=== PATIENT | male | born 1970 | race Caucasian/White ===

== ENCOUNTER 2018-01-31 16:20 | Emergency (ER) | payer MEDICARE, MEDICAID ==
[~2018-01-31] VITALS: Ht 182.9 cm; Wt 95.7 kg
[~2018-01-31 16:20] MED LIST: AMLO10TA6 PO; AMOX1TAB61 PO; DIAZEPAM10 MG PO; DOCU-109 PO; ESOM40CA PO; GEMF600T4 PO; OMEG1CAP27 PO; OXYC-328 PO; OXYC30TA PO; ROPI1TAB PO; TADA5TAB PO; cholesterol med
--- NOTE | 2018-01-31 16:30 | PHYS DOC ---
Past Medical History Past Medical History: GERD, High Cholesterol, Hypertension, Other Additional Past Medical Histor: CP of lower extremities, vertigo Past Surgical History: No Surgical History Alcohol Use: None Drug Use: None Adult General HPI HPI Patient is a 47 year old male presented to the ER by EMS with epigastric chest pain just started about 1 hour ago. The pain went up into his esophagus. Patient denied any fever, no nausea or vomiting. Patient had his gallbladder removed recently ON 01/07/18. He had no history of blood clot disorder, no history of coronary artery disease, no history of diabetic. Patient has history of hypertension. Review of Systems Review of Systems Constitutional: Denies fever or chills [] Eyes: Denies change in visual acuity, redness, or eye pain [] HENT: Denies nasal congestion or sore throat [] Respiratory: Denies cough or shortness of breath [] Cardiovascular: POSITIVE FOR CHEST PAIN GI: POSITIVE FOR abdominal pain, NO nausea, vomiting, bloody stools or diarrhea [] : Denies dysuria or hematuria [] Musculoskeletal: Denies back pain or joint pain [] Integument: Denies rash or skin lesions [] Neurologic: Denies headache, focal weakness or sensory changes [] Endocrine: Denies polyuria or polydipsia [] All other systems were reviewed and found to be within normal limits, except as documented in this note. Current Medications Current Medications Current Medications Medications (Trade) Dose Ordered Sig/Anna Start Time Stop Time Status Last Admin Dose Admin Fentanyl Citrate (Fentanyl 2ml Vial) 50 mcg 1X ONCE 01/31/18 18:45 01/31/18 18:46 DC 01/31/18 18:53 50 MCG Info (CONTRAST GIVEN -- Rx MONITORING) 1 each PRN DAILY PRN 01/31/18 17:45 02/02/18 17:44 Iohexol (Omnipaque 300 Mg/ml) 75 ml 1X ONCE 01/31/18 17:30 01/31/18 17:32 DC 01/31/18 17:30 75 ML Morphine Sulfate (Morphine Sulfate) 4 mg 1X ONCE 01/31/18 17:00 01/31/18 17:01 DC 01/31/18 17:06 4 MG Multi-Ingredient Mouthwash/Gargle (Gi Cocktail) 20 ml 1X ONCE 01/31/18 20:45 01/31/18 20:46 DC 01/31/18 20:50 20 ML Sodium Chloride 1,000 ml @ 1,000 mls/hr 1X ONCE 01/31/18 17:00 01/31/18 17:59 DC 01/31/18 17:05 1,000 MLS/HR Allergies Allergies Allergies Coded Allergies Type Severity Reaction Last Updated Verified Penicillins Allergy Intermediate Hives 01/09/18 Yes Physical Exam Physical Exam Constitutional: Well developed, well nourished, no acute distress, non-toxic appearance. [] HENT: Normocephalic, atraumatic, bilateral external ears normal, oropharynx moist, no oral exudates, nose normal. [] Eyes: PERRLA, EOMI, conjunctiva normal, no discharge. [] Neck: Normal range of motion, no tenderness, supple, no stridor. [] Cardiovascular:Heart rate regular rhythm, no murmur [] Lungs & Thorax: Bilateral breath sounds clear to auscultation [] Abdomen: Bowel sounds normal, soft, Epigastric area tender to palpation,no rebound, no guarding, no masses, no pulsatile masses. [] Skin: Warm, dry, no erythema, no rash. [] Back: No tenderness, no CVA tenderness. [] Extremities: No tenderness, no cyanosis, no clubbing, ROM intact, no edema. [] Neurologic: Alert and oriented X 3, normal motor function, normal sensory function, no focal deficits noted. [] Psychologic: Affect normal, judgement normal, mood normal. [] Current Patient Data Vital Signs Vital Signs Date Time Temp Pulse Resp B/P (MAP) Pulse Ox O2 Delivery O2 Flow Rate FiO2 01/31/18 20:55 97.8 148/88 (108) 99 Room Air 97.8 01/31/18 18:53 16 01/31/18 16:40 79 Lab Values Laboratory Tests Test 01/31/18 16:53 01/31/18 19:43 White Blood Count 9.8 x10^3/uL (4.0-11.0) Red Blood Count 5.04 x10^6/uL (4.30-5.70) Hemoglobin 15.6 g/dL (13.0-17.5) Hematocrit 44.9 % (39.0-53.0) Mean Corpuscular Volume 89 fL (79-100) Mean Corpuscular Hemoglobin 31 pg (25-35) Mean Corpuscular Hemoglobin Concent 35 g/dL (31-37) Red Cell Distribution Width 12.6 % (11.5-14.5) Platelet Count 337 x10^3/uL (140-400) Neutrophils (%) (Auto) 61 % (31-73) Lymphocytes (%) (Auto) 27 % (24-48) Monocytes (%) (Auto) 9 % (0-9) Eosinophils (%) (Auto) 2 % (0-3) Basophils (%) (Auto) 1 % (0-3) Neutrophils # (Auto) 6.0 x10^3uL (1.8-7.7) Lymphocytes # (Auto) 2.7 x10^3/uL (1.0-4.8) Monocytes # (Auto) 0.9 x10^3/uL (0.0-1.1) Eosinophils # (Auto) 0.1 x10^3/uL (0.0-0.7) Basophils # (Auto) 0.1 x10^3/uL (0.0-0.2) Prothrombin Time 12.5 SEC (11.7-14.0) Prothrombin Time INR 1.0 (0.8-1.1) D-Dimer (Sahra) 0.41 ug/mlFEU (0.00-0.50) Sodium Level 138 mmol/L (136-145) Potassium Level 3.8 mmol/L (3.5-5.1) Chloride Level 99 mmol/L (98-107) Carbon Dioxide Level 28 mmol/L (21-32) Anion Gap 11 (6-14) Blood Urea Nitrogen 10 mg/dL (8-26) Creatinine 0.8 mg/dL (0.7-1.3) Estimated GFR (Cockcroft-Gault) 104.1 BUN/Creatinine Ratio 13 (6-20) Glucose Level 103 mg/dL (70-99) H Calcium Level 9.4 mg/dL (8.5-10.1) Magnesium Level 1.9 mg/dL (1.8-2.4) Total Bilirubin 0.5 mg/dL (0.2-1.0) Aspartate Amino Transferase (AST) 45 U/L (15-37) H Alanine Aminotransferase (ALT) 32 U/L (16-63) Alkaline Phosphatase 95 U/L (46-116) Creatine Kinase 195 U/L (39-308) Troponin I Quantitative < 0.017 ng/mL (0.000-0.055) TJ-Jgz-V-Type Natriuretic Peptide 35 pg/mL (0-124) Total Protein 7.8 g/dL (6.4-8.2) Albumin 4.1 g/dL (3.4-5.0) Albumin/Globulin Ratio 1.1 (1.0-1.7) Lipase 96 U/L (73-393) Urine Collection Type Unknown Urine Color Yellow Urine Clarity Clear Urine pH 6.5 Urine Specific [place] 1.010 Urine Protein Negative mg/dL (NEG-TRACE) Urine Glucose (UA) Negative mg/dL (NEG) Urine Ketones (Stick) Negative mg/dL (NEG) Urine Blood Negative (NEG) Urine Nitrite Negative (NEG) Urine Bilirubin Negative (NEG) Urine Urobilinogen Dipstick 0.2 mg/dL (0.2 mg/dL) Urine Leukocyte Esterase Negative (NEG) Urine RBC 0 /HPF (0-2) Urine WBC 0 /HPF (0-4) Urine Squamous Epithelial Cells None /LPF Urine Bacteria 0 /HPF (0-FEW) Urine Mucus Slight /LPF Laboratory Tests 01/31/18 16:53 Laboratory Tests 01/31/18 16:53 EKG EKG ekg read at 4:35 pm, rate of 75 bpm, no STEMI, SINUS RHYTHM.[] Radiology/Procedures Radiology/Procedures [] Course & Med Decision Making Course & Med Decision Making Pertinent Labs and Imaging studies reviewed. (See chart for details) AWAITING FOR CT SCAN OF ABDOMEN , PELVIC, CTA CHEST. IF ALL NEGATIVE, ANTICIPATE DISCHARGE HOME, CARE WAS TURNED OVER TO DR. CHUCK DUNHAM AT SHIFT CHANGE. Dragon Disclaimer Dragon Disclaimer This electronic medical record was generated, in whole or in part, using a voice recognition dictation system. Departure Departure Impression: Primary Impression: Abdominal pain Disposition: 01 HOME, SELF-CARE Condition: STABLE Referrals: MELVA NAGY (PCP) CHRISSIE PACHECO MD Patient Instructions: Abdominal Pain (Nonspecific) Scripts Hyoscyamine Sulfate (LEVSIN-SL) 0.125 Mg Tab.subl 1-2 TAB SL PRN Q4HRS PRN for PAIN, #20 TAB 0 Refills Prov: LORETTA DUNHAM DO 01/31/18 Sucralfate (CARAFATE) 1 Gm/10 Ml Oral.susp 10 ML PO QID, #1200 ML Prov: LORETTA DUNHAM DO 01/31/18 Attending Signature Attending Signature I have reviewed the PA/DIE TURNER's note and plan of care. I was available for consultation as needed during the patient's visit in the emergency department. I agree with the clinical impression, plan, and disposition. Problem Qualifiers Primary Impression: Abdominal pain Abdominal location: epigastric Qualified Codes: R10.13 - Epigastric pain WELLINGTON LAW DO Jan 31, 2018 16:30 LORETTA DUNHAM DO Jan 31, 2018 20:36
[2018-01-31] MEDS ORDERED: IV NORMAL SALINE 1000ML BAG 1,000 ML IV ONE (17:00)
[2018-01-31] MEDS ORDERED: MORPHINE SULFATE 4 MG/ML VIAL. IV ONE (17:00)
[2018-01-31 17:01] LABS: BASO # 0.1 x10^3/uL (0.0-0.2); BASO % 1 % (0-3); EOS # 0.1 x10^3/uL (0.0-0.7); EOS % 2 % (0-3); HEMATOCRIT 44.9 % (39.0-53.0); HEMOGLOBIN 15.6 g/dL (13.0-17.5); LYMPH # 2.7 x10^3/uL (1.0-4.8); LYMPH % 27 % (24-48); MEAN CORPUSCULAR HEMOGLOBIN 31 pg (25-35); MEAN CORPUSCULAR HGB CONC 35 g/dL (31-37); MEAN CORPUSCULAR VOLUME 89 fL (79-100); MONO # 0.9 x10^3/uL (0.0-1.1); MONO % 9 % (0-9); NEUT % 61 % (31-73); PLATELET COUNT 337 x10^3/uL (140-400); RED BLOOD COUNT 5.04 x10^6/uL (4.30-5.70); RED CELL DISTRIBUTION WIDTH 12.6 % (11.5-14.5); WHITE BLOOD COUNT 9.8 x10^3/uL (4.0-11.0)
--- NOTE | 2018-01-31 17:05 | RAD ---
Portable chest, 01/31/2018: HISTORY: Chest pain upper abdominal pain The heart size and pulmonary vascularity are normal. No pulmonary infiltrate is seen. There is no evidence of pleural fluid. IMPRESSION: No acute cardiopulmonary abnormality is detected. Electronically signed by: Johann Joseph MD (01/31/2018 5:01 PM) [facility]
[2018-01-31 17:08] LABS: CALCIUM 9.4 mg/dL (8.5-10.1); CREATININE 0.8 mg/dL (0.7-1.3); GFR 104.1; POTASSIUM 3.8 mmol/L (3.5-5.1)
[2018-01-31 17:09] LABS: PROTHROMBIN TIME PATIENT 12.5 SEC (11.7-14.0)
[2018-01-31 17:13] LABS: D-DIMER 0.41 ug/mlFEU (0.00-0.50)
[2018-01-31 17:15] LABS: ALBUMIN 4.1 g/dL (3.4-5.0); ALBUMIN/GLOBULIN RATIO 1.1 (1.0-1.7); MAGNESIUM 1.9 mg/dL (1.8-2.4); TOTAL BILIRUBIN 0.5 mg/dL (0.2-1.0); TOTAL PROTEIN 7.8 g/dL (6.4-8.2)
[2018-01-31] MEDS ORDERED: IOHEXOL 300 MG/ML 100ML VIAL. IV ONE (17:30)
[2018-01-31] MEDS ORDERED: CONTRAST GIVEN. MC PRN (17:45)
--- NOTE | 2018-01-31 17:59 | EKG ---
[facility] [address] [place] [address] Test Date: 2018-01-31 Test Time: 16:35:30 Pat Name: LORETTA ROWELL Department: Room: Gender: Male Floor Framer: : [id number] Requested By: WELLINGTON LAW Order Number: [id number] Reading MD: Jeffery Sanchez Measurements Intervals [place] Rate: 75 P: 3 MS: 146 QRS: -13 QRSD: 82 T: 34 QT: 364 QTc: 408 Interpretive Statements SINUS RHYTHM LEFTWARD AXIS NON SPECIFIC ST DEPRESSION BORDERLINE ECG Electronically Signed On 02-03-2018 11:08:23 CDT by Jeffery Sanchez
[2018-01-31] MEDS ORDERED: fentaNYL PF VIAL 100 MCG/2 ML VIAL IV ONE (18:45)
--- NOTE | 2018-01-31 19:36 | RAD ---
PQRS Compliance statement: One or more of the following individualized dose reduction techniques were utilized for this examination: 1. Automated exposure control. 2. Adjustment of the mA and/or kV according to patient size. 3. Use of iterative reconstruction technique. Indication:RECENT SURGERY, CP, SOA, [id number] 75ML, NO PRIORS TECHNIQUE: CT angiogram of the chest with IV contrast with multiplanar MIP reformats. CT abdomen pelvis with IV contrast. COMPARISON: None FINDINGS: CT angiography of chest: Diagnostic quality PE study. No central, segmental or subsegmental filling defects in the pulmonary arteries. Heart is normal in size. No pericardial or pleural effusion. Clear neck base. No enlarged mediastinal, axillary or hilar lymph nodes. Shotty bilateral hilar lymph nodes are seen. Clear lung bases. No suspicious bony lesions CT abdomen pelvis: Liver, spleen, pancreas, adrenals within normal limits. Bilateral low attenuating lesions are seen, the largest on the right side measuring 2.5 cm and on the left side measuring 2.3 cm. These are also seen on previous study. No nephrolithiasis or hydronephrosis. No enlarged retroperitoneal or pelvic adenopathy. Status post cholecystectomy. Normal appendix. No free pelvic fluid or ascites. Urinary bladder within normal limits. The prostate and seminal vesicles show no large mass. No pneumoperitoneum. No suspicious bony lesion. IMPRESSION: 1. No PE. No pneumonia. 2. Bilateral renal lesions also seen on previous study from December 2017, indeterminate most likely simple and minimally comminuted cysts.. However, Nonemergent ultrasound of the kidneys or MRI of the abdomen with IV contrast recommended. 2. No bowel obstruction. Normal appendix. Electronically signed by: Ricky Lara DO (01/31/2018 7:32 PM) [facility]
[2018-01-31 19:54] LABS: BILIRUBIN,URINE NEGATIVE (NEG); CLARITY,URINE CLEAR; COLOR,URINE YELLOW; NITRITE,URINE NEGATIVE (NEG); PH,URINE 6.5; PROTEIN,URINE NEGATIVE (NEG-TRACE); UROBILINOGEN,URINE 0.2 mg/dL (0.2 mg/dL)
[2018-01-31 20:19] LABS: BACTERIA,URINE 0 /HPF (0-FEW); RBC,URINE 0 /HPF (0-2); WBC,URINE 0 /HPF (0-4)
[2018-01-31] MEDS ORDERED: SUCR1ORA5 PO (20:36)
[2018-01-31] MEDS ORDERED: HYOS0.1265 SL (20:36)
[2018-01-31] MEDS ORDERED: LIDO:MAALOX 1:1 20 ML SINGLE DOSE. PO ONE (20:45)
[2018-01-31 20:55] VITALS: BP 148/88
== END 2018-01-31 20:57 | disposition home or self-care (01) ==
LOC: ER 16:20
DX: R10.13 Epigastric pain (principal); R07.9 Chest pain, unspecified; K21.9 Gastro-esophageal reflux disease without esophagitis; G89.29 Other chronic pain; M79.605 Pain in left leg; M79.604 Pain in right leg; Z90.49 Acquired absence of other specified parts of digestive tract; Z88.0 Allergy status to penicillin
CPT/HCPCS: 36415; 71045; 71275; 74177; 80053; 81001; 82550; 83690; 83735; 83880; 84484; 85025; 85379; 85610; 93005; 96374; 96375; 99285; J2270; J3010; J7030; Q9967

== ENCOUNTER → 2018-02-07 | Outpatient (CLI) | payer MEDICARE, MEDICAID ==
[2018-01-31 20:55] VITALS: BP 148/88
[~2018-02-07] MED LIST changes: +COLE1TAB PO; +HYOS0.1265 SL; +SUCR1ORA5 PO
--- NOTE | 2018-02-07 13:33 | RAD ---
MRCP without contrast 02/07/2018 CLINICAL INDICATION: Worsening abdominal pain with recent cholecystectomy. COMPARISON: CT abdomen and pelvis with contrast 01/31/2018. TECHNIQUE: Multisequence, multiplanar MR imaging of the abdomen was performed without contrast. FINDINGS: Evaluation of the viscera is limited due to lack of intravenous contrast. Lower thorax: Unremarkable. Liver: Normal in size and morphology without suspicious signal abnormality. Pancreaticobiliary system: No intra or extrahepatic biliary ductal dilatation, focal caliber change to suggest stricture or intraluminal filling defect. There is a low medial insertion of the cystic duct. No main branch pancreatic ductal dilatation. Spleen: Unremarkable. Adrenal glands: Unremarkable. Kidneys: Both kidneys present without hydronephrosis multiple bilateral simple renal cysts. Pancreas: Unremarkable. IMPRESSION: 1. Cholecystectomy without biliary ductal dilatation, stricture or choledocholithiasis. 2. Note is made of a low medial insertion of the cystic duct. 3. Simple bilateral renal cysts. Electronically signed by: Maury Noe MD (02/07/2018 1:29 PM) [id number]
== END | disposition home or self-care (01) ==
LOC: MRI 08:53
PROVIDERS: ATTEND Surgery
DX: N28.1 Cyst of kidney, acquired (principal); I10 Essential (primary) hypertension; E78.00 Pure hypercholesterolemia, unspecified; E78.5 Hyperlipidemia, unspecified; K21.9 Gastro-esophageal reflux disease without esophagitis; Z90.49 Acquired absence of other specified parts of digestive tract; Z98.890 Other specified postprocedural states; Z86.73 Personal history of transient ischemic attack (TIA), and cerebral infarction without residual deficits; Z80.7 Family history of other malignant neoplasms of lymphoid, hematopoietic and related tissues
CPT/HCPCS: 74181

== ENCOUNTER 2018-02-21 15:39 | Inpatient (IN) | payer MEDICARE, MEDICAID ==
[~2018-02-21] VITALS: Ht 182.9 cm; Wt 92.1 kg
[~2018-02-21 15:39] MED LIST changes: -DEXAMETHASONE SOD PHOS 20 MG/5 ML VIAL. ONE; -FAMOTIDINE 20 MG/2 ML VIAL ONE; -IOHEXOL 300 MG/ML 100ML VIAL. IV ONE; -IOHEXOL 300 MG/ML 100ML VIAL. ONE; -IV RINGERS,LACTATED 1000ML 1,000 ML IV SCH; -LIDOCAINE 1% PF 2 ML VIAL. ID PRN; -MORPHINE SULFATE 2 MG/ML VIAL. IV PRN; -ONDANSETRON PF 4 MG/2 ML VIAL. IV PRN; -ONDANSETRON PF 4 MG/2 ML VIAL. ONE; -PROCHLORPERAZINE 10 MG/2 ML VIAL. IV PRN; -PROPOFOL 20 ML IV ONE; -SUCCINYLCHOLINE 200 MG/10 ML VIAL. ONE; -fentaNYL PF VIAL 100 MCG/2 ML VIAL IV PRN
[2018-02-21] MEDS ORDERED: fentaNYL PF VIAL 100 MCG/2 ML VIAL IV ONE ×2 (17:00→18:45)
[2018-02-21] MEDS ORDERED: ONDANSETRON PF 4 MG/2 ML VIAL. IV ONE (17:00)
[2018-02-21] MEDS ORDERED: IV NORMAL SALINE 1000ML BAG 1,000 ML IV ONE (17:00)
[2018-02-21 17:05] LABS: BASO % 0 % (0-3); EOS % 0 % (0-3); HEMATOCRIT 44.5 % (39.0-53.0); HEMOGLOBIN 15.6 g/dL (13.0-17.5); LYMPH # 0.6 x10^3/uL (1.0-4.8); LYMPH % 5 % (24-48); MEAN CORPUSCULAR HEMOGLOBIN 32 pg (25-35); MEAN CORPUSCULAR HGB CONC 35 g/dL (31-37); MEAN CORPUSCULAR VOLUME 90 fL (79-100); MONO # 0.1 x10^3/uL (0.0-1.1); MONO % 1 % (0-9); NEUT # 11.8 x10^3uL (1.8-7.7); NEUT % 94 % (31-73); PLATELET COUNT 329 x10^3/uL (140-400); RED BLOOD COUNT 4.94 x10^6/uL (4.30-5.70); RED CELL DISTRIBUTION WIDTH 12.5 % (11.5-14.5); WHITE BLOOD COUNT 12.6 x10^3/uL (4.0-11.0)
[2018-02-21 17:07] LABS: BILIRUBIN,URINE NEGATIVE (NEG); CLARITY,URINE CLEAR; COLOR,URINE YELLOW; NITRITE,URINE NEGATIVE (NEG); PH,URINE 8.5; PROTEIN,URINE NEGATIVE (NEG-TRACE)
[2018-02-21 17:12] LABS: BACTERIA,URINE 0 /HPF (0-FEW); RBC,URINE 0 /HPF (0-2); WBC,URINE 0 /HPF (0-4)
[2018-02-21 17:19] LABS: CALCIUM 9.7 mg/dL (8.5-10.1); CREATININE 0.8 mg/dL (0.7-1.3); GFR 104.1; POTASSIUM 3.7 mmol/L (3.5-5.1)
[2018-02-21 17:40] LABS: % BASOS 1 % (0-3); % LYMPHS 5 % (24-48); % MONOS 1 % (0-10); % SEGS 93 % (35-66)
[2018-02-21 17:41] LABS: PLT ESTIMATE ADEQUATE (ADEQUATE); TOXIC GRANULATION SLIGHT
[2018-02-21 18:25] LABS: ALBUMIN 4.3 g/dL (3.4-5.0); DIRECT BILIRUBIN 0.9 mg/dL (0.0-0.2); TOTAL BILIRUBIN 1.3 mg/dL (0.2-1.0)
[2018-02-21] MEDS ORDERED: ONDANSETRON PF 4 MG/2 ML VIAL. IV PRN (19:00)
--- NOTE | 2018-02-21 19:00 | PHYS DOC ---
Past Medical History Past Medical History: GERD, High Cholesterol, Hypertension, Other Additional Past Medical Histor: CP of lower extremities, vertigo Past Surgical History: Cholecystectomy Alcohol Use: None Drug Use: None Adult General Chief Complaint Chief Complaint: ABDOMINAL PAIN HPI HPI Patient is a 47 year old male who presents with the ERCP today by Dr. owens. Patient states he has been in constant pain since before he even left. Patient states he took 2 Percocet at 1330. Patient states he has vomited twice but there was no blood. Patient denies eating any food today. Patient states he is passing gas. Patient rates his pain a 10 out of 10. Review of Systems Review of Systems Constitutional: Denies fever or chills [] Eyes: Denies change in visual acuity, redness, or eye pain [] HENT: Denies nasal congestion or sore throat [] Respiratory: Denies cough or shortness of breath [] Cardiovascular: No additional information not addressed in HPI [] GI: Denies abdominal pain, nausea, vomiting, bloody stools or diarrhea [] : Denies dysuria or hematuria [] Musculoskeletal: Denies back pain or joint pain [] Integument: Denies rash or skin lesions [] Neurologic: Denies headache, focal weakness or sensory changes [] Endocrine: Denies polyuria or polydipsia [] All other systems were reviewed and found to be within normal limits, except as documented in this note. Current Medications Current Medications Current Medications Medications (Trade) Dose Ordered Sig/Anna Start Time Stop Time Status Last Admin Dose Admin Fentanyl Citrate (Fentanyl 2ml Vial) 50 mcg 1X ONCE 02/21/18 17:00 02/21/18 17:01 DC 02/21/18 17:51 50 MCG Ondansetron HCl (Zofran) 4 mg 1X ONCE 02/21/18 17:00 02/21/18 17:01 DC 02/21/18 17:52 4 MG Sodium Chloride 1,000 ml @ 1,000 mls/hr 1X ONCE 02/21/18 17:00 02/21/18 18:00 DC 02/21/18 17:56 1,000 MLS/HR Allergies Allergies Allergies Coded Allergies Type Severity Reaction Last Updated Verified Penicillins Allergy Intermediate Hives 02/21/18 Yes morphine Allergy Intermediate Itching 02/21/18 Yes Physical Exam Physical Exam Constitutional: Well developed, well nourished, no acute distress, non-toxic appearance. [] HENT: Normocephalic, atraumatic, bilateral external ears normal, oropharynx moist, no oral exudates, nose normal. [] Eyes: PERRLA, EOMI, conjunctiva normal, no discharge. [] Neck: Normal range of motion, no tenderness, supple, no stridor. [] Cardiovascular:Heart rate regular rhythm, no murmur [] Lungs & Thorax: Bilateral breath sounds clear to auscultation [] Abdomen: Bowel sounds normal, soft, no tenderness, no masses, no pulsatile masses. [] Skin: Warm, dry, no erythema, no rash. [] Back: No tenderness, no CVA tenderness. [] Extremities: No tenderness, no cyanosis, no clubbing, ROM intact, no edema. [] Neurologic: Alert and oriented X 3, normal motor function, normal sensory function, no focal deficits noted. [] Psychologic: Affect normal, judgement normal, mood normal. [] Current Patient Data Vital Signs Vital Signs Date Time Temp Pulse Resp B/P (MAP) Pulse Ox O2 Delivery O2 Flow Rate FiO2 02/21/18 18:30 73 16 148/85 (106) 94 Room Air Lab Values Laboratory Tests Test 02/21/18 16:15 02/21/18 16:40 Urine Collection Type Unknown Urine Color Yellow Urine Clarity Clear Urine pH 8.5 Urine Specific [place] 1.015 Urine Protein Negative mg/dL (NEG-TRACE) Urine Glucose (UA) Negative mg/dL (NEG) Urine Ketones (Stick) Negative mg/dL (NEG) Urine Blood Negative (NEG) Urine Nitrite Negative (NEG) Urine Bilirubin Negative (NEG) Urine Urobilinogen Dipstick 1.0 mg/dL (0.2 mg/dL) Urine Leukocyte Esterase Negative (NEG) Urine RBC 0 /HPF (0-2) Urine WBC 0 /HPF (0-4) Urine Squamous Epithelial Cells None /LPF Urine Bacteria 0 /HPF (0-FEW) White Blood Count 12.6 x10^3/uL (4.0-11.0) H Red Blood Count 4.94 x10^6/uL (4.30-5.70) Hemoglobin 15.6 g/dL (13.0-17.5) Hematocrit 44.5 % (39.0-53.0) Mean Corpuscular Volume 90 fL (79-100) Mean Corpuscular Hemoglobin 32 pg (25-35) Mean Corpuscular Hemoglobin Concent 35 g/dL (31-37) Red Cell Distribution Width 12.5 % (11.5-14.5) Platelet Count 329 x10^3/uL (140-400) Neutrophils (%) (Auto) 94 % (31-73) H Lymphocytes (%) (Auto) 5 % (24-48) L Monocytes (%) (Auto) 1 % (0-9) Eosinophils (%) (Auto) 0 % (0-3) Basophils (%) (Auto) 0 % (0-3) Neutrophils # (Auto) 11.8 x10^3uL (1.8-7.7) H Lymphocytes # (Auto) 0.6 x10^3/uL (1.0-4.8) L Monocytes # (Auto) 0.1 x10^3/uL (0.0-1.1) Eosinophils # (Auto) 0.0 x10^3/uL (0.0-0.7) Basophils # (Auto) 0.0 x10^3/uL (0.0-0.2) Segmented Neutrophils % 93 % (35-66) H Lymphocytes % 5 % (24-48) L Monocytes % 1 % (0-10) Basophils % 1 % (0-3) Toxic Granulation Slight Platelet Estimate Adequate (ADEQUATE) Sodium Level 136 mmol/L (136-145) Potassium Level 3.7 mmol/L (3.5-5.1) Chloride Level 101 mmol/L (98-107) Carbon Dioxide Level 25 mmol/L (21-32) Anion Gap 10 (6-14) Blood Urea Nitrogen 9 mg/dL (8-26) Creatinine 0.8 mg/dL (0.7-1.3) Estimated GFR (Cockcroft-Gault) 104.1 Glucose Level 137 mg/dL (70-99) H Calcium Level 9.7 mg/dL (8.5-10.1) Total Bilirubin 1.3 mg/dL (0.2-1.0) H Direct Bilirubin 0.9 mg/dL (0.0-0.2) H Aspartate Amino Transferase (AST) 324 U/L (15-37) H Alanine Aminotransferase (ALT) 222 U/L (16-63) H Alkaline Phosphatase 143 U/L (46-116) H C-Reactive Protein, Quantitative 2.9 mg/L (0-3.3) Total Protein 8.0 g/dL (6.4-8.2) Albumin 4.3 g/dL (3.4-5.0) Lipase 381 U/L (73-393) Laboratory Tests 02/21/18 16:40 Laboratory Tests 02/21/18 16:40 EKG EKG [] Radiology/Procedures Radiology/Procedures [facility] Course & Med Decision Making Course & Med Decision Making Patient is a 47 year old male who presents with the ERCP today by Dr. owens. Patient states he has been in constant pain since before he even left. Patient states he took 2 Percocet at 1330. Patient states he has vomited twice but there was no blood. Patient denies eating any food today. Patient states he is passing gas. His abdomen is soft slightly distended and tender more in the upper right and left quadrant. Patient rates his pain a 10 out of 10. Lungs are clear bilaterally. Patient skin is pink, warm and dry. He has not vomited since he has been to the ED. He has had a total of 100 of fentanyl and 4 of Zofran. Patient states is not touching his pain. Patient is also had 1 bolus of normal saline fluid. I called and talked to GI doctor Dayne who is on-call and told her about the patient and she states to get a abdominal ultrasound to check for pancreatitis. Patient is sitting calmly in his room but states that his pain is still a 10 out of 10. Patient AST is 324, ALT 222, alkaline phosphatase is 143, total bili is 1.3, lipase is 381, these are all very high compared to his last set of labs that was done and February 07, 2018. He is alert and oriented. Patient has no extremity edema. He is neurologically intact. Patient is allergic to penicillin and morphine. Patient's vital signs are stable. Patient has a history of a TIA, vertigo, headache, Cholecystectomy that was done in January. Spoken to Dr. Jaramillo is agreed to admit the patient for pancreatitis. [] Dragon Disclaimer Dragon Disclaimer This electronic medical record was generated, in whole or in part, using a voice recognition dictation system. Departure Departure Impression: Primary Impression: Intractable abdominal pain Additional Impression: Status post endoscopic retrograde cholangiopancreatography Disposition: 09 ADMITTED INPATIENT Admitting Physician: Yamile Dupont Condition: STABLE Referrals: MELVA NAGY (PCP) Attending Signature Attending Signature I have reviewed the PA/WEBSPHERE COMMERCE DEVELOPER's note and plan of care. I was available for consultation as needed during the patient's visit in the emergency department. I agree with the clinical impression, plan, and disposition. Problem Qualifiers IASCC SHARMA APRN Feb 21, 2018 19:00 LORETTA DUNHAM DO Feb 23, 2018 12:36
[2018-02-21] MEDS ORDERED: FAMOTIDINE 20 MG/2 ML VIAL IVP ONE (19:45)
[2018-02-21 20:40] VITALS: BP 127/70
[2018-02-21] MEDS ORDERED: DOCUSATE SODIUM 100 MG CAPSULE. PO PRN (20:45)
[2018-02-21] MEDS ORDERED: KETOROLAC 30 MG/ML VIAL. IV PRN (20:45)
[2018-02-21] MEDS: IV NORMAL SALINE 1000ML BAG 1,000 ML IV SCH (20:58)
[2018-02-21] MEDS: NICOTINE 21MG PATCH. TD PRN (20:59)
[2018-02-21] MEDS: rOPINIRole 1 MG TABLET. PO SCH (22:30)
[2018-02-21] MEDS ORDERED: oxyCODONE/APAP 10/325 1 TAB TABLET PO PRN (22:30)
[2018-02-21 22:31] VITALS: BP 128/79
[2018-02-21] MEDS: oxyCODONE/APAP 10/325 1 TAB TABLET PO PRN (23:35)
[2018-02-21] MEDS ORDERED: POLYETHYLENE GLYCOL 3350 17 GM PACKET. PO PRN (23:45)
[2018-02-22] MEDS ORDERED: LIDO:MAALOX 1:1 20 ML SINGLE DOSE. PO ONE (00:15)
[2018-02-22] MEDS: BENZOCAINE/MENTHOL LOZENGE. PO PRN ×5 (00:37→22:07)
[2018-02-22] MEDS: fentaNYL PF VIAL 100 MCG/2 ML VIAL IV PRN ×3 (00:38→08:28)
[2018-02-22 02:48] VITALS: BP 128/68
[2018-02-22 07:00] VITALS: BP 124/71
[2018-02-22] MEDS: IV NORMAL SALINE 1000ML BAG 1,000 ML IV SCH ×2 (07:43→14:55)
--- NOTE | 2018-02-22 07:50 | PDOC1 ---
History and Physical Date of Admission Date of Admission DATE: 02/22/18 TIME: 07:48 Identification/Chief Complaint Chief Complaint Pancreatitis ERCP Source Source: Chart review, Patient History of Present Illness History of Present Illness Patient is a 47 year old male who presents with the ERCP with sphincterotomy and balloon sweep yesterday by Dr. Garcia. Patient states he has been in constant pain since before he even left. Patient states he took 2 Percocet at 1330. Patient states he vomited twice but there was no blood. Patient denies eating any food since 2 days ago. Patient states he is passing gas. Patient rates his pain a 10 out of 10. In ED had a total of 100 of fentanyl and 4 of Zofran. Patient states is not touching his pain. Patient is also had 1 bolus of normal saline fluid. Labs on admit with Lipase 381, T bili 1.3, D bili 0.9, AST 324, ALT 222, ALP 143. Feels better today. S/p Cholecystectomy that was done in January. He is asking for dilaudid by name repeatedly, states he has an appetite as well , is asking to go home today, advised his labs need to be repeated.. Past Medical History Cardiovascular: HTN, Hyperlipidemia Pulmonary: No pertinent hx CENTRAL NERVOUS SYSTEM: TIA, Vertigo, Other GI: Diverticulosis, GERD Heme/Onc: No pertinent hx Hepatobiliary: No pertinent hx Psych: Anxiety Musculoskeletal: low back pain, Osteoarthritis Rheumatologic: No pertinent hx Infectious disease: No pertinent hx Renal/: No pertinent hx Endocrine: No pertinent hx Past Surgical History Past Surgical History: Cholecystectomy, No pertinent history Family History Family History: No Significant Social History ALCOHOL: none Drugs: None Current Medications Current Medications Current Medications Sodium Chloride 1,000 ml @ 1,000 mls/hr 1X ONCE IV Last administered on at 17:56; Start 02/21/18 at 17:00; Stop 02/21/18 at 18:00; Status DC Ondansetron HCl (Zofran) 4 mg 1X ONCE IV Last administered on 02/21/18at 17:52 ; Start 02/21/18 at 17:00; Stop 02/21/18 at 17:01; Status DC Fentanyl Citrate (Fentanyl 2ml Vial) 50 mcg 1X ONCE IV Last administered on at 17:51; Start 02/21/18 at 17:00; Stop 02/21/18 at 17:01; Status DC Fentanyl Citrate (Fentanyl 2ml Vial) 50 mcg 1X ONCE IV Last administered on at 18:45; Start 02/21/18 at 18:45; Stop 02/21/18 at 18:46; Status DC Ondansetron HCl (Zofran) 4 mg PRN Q8HRS PRN IV NAUSEA/VOMITING; Start 02/21/18 at 19:00; Stop 02/22/18 at 18:59 Fentanyl Citrate (Fentanyl 2ml Vial) 50 mcg PRN Q2HR PRN IV PAIN Last administered on 02/22/18at 04:19; Start 02/21/18 at 19:00; Stop 02/22/18 at 18:59 Sodium Chloride 1,000 ml @ 100 mls/hr Q10H IV Last administered on 02/22/18at 07:43; Start 02/21/18 at 18:55; Stop 02/22/18 at 18:54 Famotidine (Pepcid Vial) 20 mg 1X ONCE IVP Last administered on 02/21/18at 19: 37; Start 02/21/18 at 19:45; Stop 02/21/18 at 19:46; Status DC Nicotine (Nicoderm Cq 21mg) 1 patch PRN DAILY PRN TD SMOKING CESSATION Last administered on 02/21/18at 20:59; Start 02/21/18 at 20:45 Ketorolac Tromethamine (Toradol 30mg Vial) 30 mg PRN Q6HRS PRN IV PAIN Last administered on 02/21/18at 20:59; Start 02/21/18 at 20:45; Stop 02/26/18 at 20: 44 Amlodipine Besylate (Norvasc) 10 mg DAILY PO ; Start 02/22/18 at 09:00 Docusate Sodium (Colace) 100 mg PRN BID PRN PO CONSTIPATION; Start 02/21/18 at 20:45 Pantoprazole Sodium (Protonix) 40 mg DAILYAC PO ; Start 02/22/18 at 07:30 Ropinirole HCl (Requip) 1 mg QHS PO ; Start 02/21/18 at 22:30 Fish Oil (Fish Oil) 1,000 mg BID PO ; Start 02/22/18 at 09:00 Oxycodone/ Acetaminophen (Percocet 10/325) 1 tab PRN TID PRN PO MODERATE PAIN Last administered on 02/21/18at 22:40; Start 02/21/18 at 22:30 Oxycodone/ Acetaminophen (Percocet 10/325) 2 tab PRN TID PRN PO SEVERE PAIN Last administered on 02/21/18at 23:35; Start 02/21/18 at 22:30 Pharmacy Consult (C.diff Med Screen By Rx) 1 each 1X ONCE [facility] ; Start 02/22/18 at 09:00; Stop 02/22/18 at 09:01 Polyethylene Glycol (miraLAX PACKET) 17 gm PRN DAILY PRN PO CONSTIPATION; Start 02/21/18 at 23:45 Multi-Ingredient Mouthwash/Gargle (Gi Cocktail) 20 ml 1X ONCE PO Last administered on 02/22/18at 00:36; Start 02/22/18 at 00:15; Stop 02/22/18 at 00:16 ; Status DC Throat Lozenges (Cepacol Sore Throat Lozenge) 1 lulu PRN Q2HRS PRN PO SORE THROAT Last administered on 02/22/18at 04:22; Start 02/21/18 at 23:45 Active Scripts Active Percocet 10-325 Mg Tablet (Oxycodone/Acetaminophen) 1 Each Tablet 1-2 Tab PO TID PRN Colace (Docusate Sodium) 100 Mg Capsule 100 Mg PO BID PRN Reported Requip (Ropinirole Hcl) 1 Mg Tablet 1 Tab PO QHS Gemfibrozil 600 Mg Tablet 600 Mg PO DAILY Fish Oil 1,000 Mg Softgel ([place]-3 Fatty Acids/Fish Oil) 1 Each Capsule 1 Each PO BID Cialis (Tadalafil) 5 Mg Tablet 5 Mg PO PRN DAILY PRN Amlodipine Besylate 10 Mg Tablet 10 Mg PO DAILY Nexium Capsule (Esomeprazole Magnesium) 40 Mg Capsule.dr 40 Mg PO DAILYAC Diazepam 10 Mg Tablet 20 Mg PO TID Allergies Allergies: Coded Allergies: Penicillins (Verified Allergy, Intermediate, Hives, 02/21/18) morphine (Verified Allergy, Intermediate, Itching, 02/21/18) Physical Exam General: Alert, Oriented X3, Cooperative, mild distress HEENT: PERRLA Lungs: Clear to auscultation, Normal air movement Heart: S1S2, RRR, no murmurs Breasts: Pt decl breast exam Abdomen: Normal bowel sounds, Soft, Other (Surgical site clean, epigastric and RUQ pain on palpation) Rectal Exam: not examined Extremities: No clubbing, No cyanosis, No edema, Normal pulses, No tenderness/ swelling Skin: No rashes, No breakdown, No significant lesion Neuro: Normal gait, Normal speech, Strength at 5/5 X4 ext, Normal tone, Sensation intact, Cranial nerves 3-12 NL, Reflexes 2+ Psych/Mental Status: Mental status NL, Mood NL Vitals Vitals Vital Signs Date Time Temp Pulse Resp B/P (MAP) Pulse Ox O2 Delivery O2 Flow Rate FiO2 02/22/18 04:56 15 98 Room Air 02/22/18 02:48 97.9 69 128/68 (88) 97.9 Labs Labs Laboratory Tests Test 02/21/18 16:15 02/21/18 16:40 Urine Collection Type Unknown Urine Color Yellow Urine Clarity Clear Urine pH 8.5 Urine Specific [place] 1.015 Urine Protein Negative mg/dL (NEG-TRACE) Urine Glucose (UA) Negative mg/dL (NEG) Urine Ketones (Stick) Negative mg/dL (NEG) Urine Blood Negative (NEG) Urine Nitrite Negative (NEG) Urine Bilirubin Negative (NEG) Urine Urobilinogen Dipstick 1.0 mg/dL (0.2 mg/dL) Urine Leukocyte Esterase Negative (NEG) Urine RBC 0 /HPF (0-2) Urine WBC 0 /HPF (0-4) Urine Squamous Epithelial Cells None /LPF Urine Bacteria 0 /HPF (0-FEW) White Blood Count 12.6 x10^3/uL (4.0-11.0) Red Blood Count 4.94 x10^6/uL (4.30-5.70) Hemoglobin 15.6 g/dL (13.0-17.5) Hematocrit 44.5 % (39.0-53.0) Mean Corpuscular Volume 90 fL (79-100) Mean Corpuscular Hemoglobin 32 pg (25-35) Mean Corpuscular Hemoglobin Concent 35 g/dL (31-37) Red Cell Distribution Width 12.5 % (11.5-14.5) Platelet Count 329 x10^3/uL (140-400) Neutrophils (%) (Auto) 94 % (31-73) Lymphocytes (%) (Auto) 5 % (24-48) Monocytes (%) (Auto) 1 % (0-9) Eosinophils (%) (Auto) 0 % (0-3) Basophils (%) (Auto) 0 % (0-3) Neutrophils # (Auto) 11.8 x10^3uL (1.8-7.7) Lymphocytes # (Auto) 0.6 x10^3/uL (1.0-4.8) Monocytes # (Auto) 0.1 x10^3/uL (0.0-1.1) Eosinophils # (Auto) 0.0 x10^3/uL (0.0-0.7) Basophils # (Auto) 0.0 x10^3/uL (0.0-0.2) Segmented Neutrophils % 93 % (35-66) Lymphocytes % 5 % (24-48) Monocytes % 1 % (0-10) Basophils % 1 % (0-3) Toxic Granulation Slight Platelet Estimate Adequate (ADEQUATE) Sodium Level 136 mmol/L (136-145) Potassium Level 3.7 mmol/L (3.5-5.1) Chloride Level 101 mmol/L (98-107) Carbon Dioxide Level 25 mmol/L (21-32) Anion Gap 10 (6-14) Blood Urea Nitrogen 9 mg/dL (8-26) Creatinine 0.8 mg/dL (0.7-1.3) Estimated GFR (Cockcroft-Gault) 104.1 Glucose Level 137 mg/dL (70-99) Calcium Level 9.7 mg/dL (8.5-10.1) Total Bilirubin 1.3 mg/dL (0.2-1.0) Direct Bilirubin 0.9 mg/dL (0.0-0.2) Aspartate Amino Transf (AST/SGOT) 324 U/L (15-37) Alanine Aminotransferase (ALT/SGPT) 222 U/L (16-63) Alkaline Phosphatase 143 U/L (46-116) C-Reactive Protein, Quantitative 2.9 mg/L (0-3.3) Total Protein 8.0 g/dL (6.4-8.2) Albumin 4.3 g/dL (3.4-5.0) Lipase 381 U/L (73-393) Laboratory Tests Test 02/21/18 16:15 02/21/18 16:40 Urine Collection Type Unknown Urine Color Yellow Urine Clarity Clear Urine pH 8.5 Urine Specific [place] 1.015 Urine Protein Negative mg/dL (NEG-TRACE) Urine Glucose (UA) Negative mg/dL (NEG) Urine Ketones (Stick) Negative mg/dL (NEG) Urine Blood Negative (NEG) Urine Nitrite Negative (NEG) Urine Bilirubin Negative (NEG) Urine Urobilinogen Dipstick 1.0 mg/dL (0.2 mg/dL) Urine Leukocyte Esterase Negative (NEG) Urine RBC 0 /HPF (0-2) Urine WBC 0 /HPF (0-4) Urine Squamous Epithelial Cells None /LPF Urine Bacteria 0 /HPF (0-FEW) White Blood Count 12.6 x10^3/uL (4.0-11.0) Red Blood Count 4.94 x10^6/uL (4.30-5.70) Hemoglobin 15.6 g/dL (13.0-17.5) Hematocrit 44.5 % (39.0-53.0) Mean Corpuscular Volume 90 fL (79-100) Mean Corpuscular Hemoglobin 32 pg (25-35) Mean Corpuscular Hemoglobin Concent 35 g/dL (31-37) Red Cell Distribution Width 12.5 % (11.5-14.5) Platelet Count 329 x10^3/uL (140-400) Neutrophils (%) (Auto) 94 % (31-73) Lymphocytes (%) (Auto) 5 % (24-48) Monocytes (%) (Auto) 1 % (0-9) Eosinophils (%) (Auto) 0 % (0-3) Basophils (%) (Auto) 0 % (0-3) Neutrophils # (Auto) 11.8 x10^3uL (1.8-7.7) Lymphocytes # (Auto) 0.6 x10^3/uL (1.0-4.8) Monocytes # (Auto) 0.1 x10^3/uL (0.0-1.1) Eosinophils # (Auto) 0.0 x10^3/uL (0.0-0.7) Basophils # (Auto) 0.0 x10^3/uL (0.0-0.2) Segmented Neutrophils % 93 % (35-66) Lymphocytes % 5 % (24-48) Monocytes % 1 % (0-10) Basophils % 1 % (0-3) Toxic Granulation Slight Platelet Estimate Adequate (ADEQUATE) Sodium Level 136 mmol/L (136-145) Potassium Level 3.7 mmol/L (3.5-5.1) Chloride Level 101 mmol/L (98-107) Carbon Dioxide Level 25 mmol/L (21-32) Anion Gap 10 (6-14) Blood Urea Nitrogen 9 mg/dL (8-26) Creatinine 0.8 mg/dL (0.7-1.3) Estimated GFR (Cockcroft-Gault) 104.1 Glucose Level 137 mg/dL (70-99) Calcium Level 9.7 mg/dL (8.5-10.1) Total Bilirubin 1.3 mg/dL (0.2-1.0) Direct Bilirubin 0.9 mg/dL (0.0-0.2) Aspartate Amino Transf (AST/SGOT) 324 U/L (15-37) Alanine Aminotransferase (ALT/SGPT) 222 U/L (16-63) Alkaline Phosphatase 143 U/L (46-116) C-Reactive Protein, Quantitative 2.9 mg/L (0-3.3) Total Protein 8.0 g/dL (6.4-8.2) Albumin 4.3 g/dL (3.4-5.0) Lipase 381 U/L (73-393) VTE Prophylaxis Ordered VTE Prophylaxis Devices: No VTE Pharmacological Prophylaxi: No Assessment/Plan Assessment/Plan A/P: Acute pancreatitis - likely 2/2 ERCP. admitted for IVF, nausea and pain control. Fentanyl and oral oxycodone have been managing his pain, however he continues to request IV dilaudid as well as food on return examination later in the day. Will repeat LFTs, lipase, CBC tomorrow morning. Can have clears tonight if ok with GI s/p sheela - surgical site looks good. HTN - possibly 2/2 pain initially, will cont meds, switch to IV if nausea continues HLD - exacerbated pancreatitis, will monitor triglycerides Hyperglycemia - possibly 2/2 stress, will monitor and add sliding scale if > 140mg/dL CONNOR VELASCO MD Feb 22, 2018 07:50
[2018-02-22] MEDS ORDERED: ONDANSETRON PF 4 MG/2 ML VIAL. IV PRN (08:00)
[2018-02-22] MEDS ORDERED: HYDROmorphone 2 MG/ML VIAL IVP PRN (08:00)
[2018-02-22] MEDS: PANTOPRAZOLE 40 MG TABLET.DR. PO SCH (08:25)
[2018-02-22] MEDS: OMEGA-3 FATTY ACIDS/FISH OIL 1,000 MG CAPSULE. PO SCH ×2 (08:25→19:42)
[2018-02-22] MEDS: amLODIPine BESYLATE 10 MG TABLET PO SCH (08:27)
[2018-02-22] MEDS: HEPARIN PF for SUB-Q USE 5,000 UNIT/0.5 ML VIAL. SQ SCH ×3 (08:37→19:51)
[2018-02-22] MEDS: IV RINGERS,LACTATED 1000ML 1,000 ML IV SCH ×2 (08:38→18:11)
[2018-02-22] MEDS ORDERED: C.DIFF MED SCREEN BY RX. MC ONE (09:00)
[2018-02-22] MEDS: oxyCODONE/APAP 10/325 1 TAB TABLET PO PRN ×2 (10:33→19:42)
[2018-02-22 11:00] VITALS: BP 122/78
[2018-02-22] MEDS: oxyCODONE IR 5 MG TABLET PO PRN ×2 (13:37→22:08)
--- NOTE | 2018-02-22 14:38 | PDOC2 ---
GI CONSULT Reason For Consult: post ERCP pancreatitis HPI: HPI: 47 y/o male s/p ERCP for choledocholithiasis underwent ERCP by DR Davila 02/22 with sphincterotomy and balloon sweep. Labs on admit with Lipase 381, T bili 1.3, D bili 0.9, AST 324, ALT 222, ALP 143. Feels better today. Wants to go home. PMH: PMH: Past Medical History Past Medical History: GERD, High Cholesterol, Hypertension, Other Additional Past Medical Histor: CP of lower extremities, vertigo Past Surgical History: Cholecystectomy Alcohol Use: None Drug Use: None FH: Family History: Cancer Social History: ALCOHOL: none Drugs: None ROS: Review of Systems Review of Systems Constitutional: Denies fever or chills [] Eyes: Denies change in visual acuity, redness, or eye pain [] HENT: Denies nasal congestion or sore throat [] Respiratory: Denies cough or shortness of breath [] Cardiovascular: No additional information not addressed in HPI [] GI: Denies abdominal pain, nausea, vomiting, bloody stools or diarrhea [] : Denies dysuria or hematuria [] Musculoskeletal: Denies back pain or joint pain [] Integument: Denies rash or skin lesions [] Neurologic: Denies headache, focal weakness or sensory changes [] Endocrine: Denies polyuria or polydipsia [] VItals: Vitals: Vital Signs Date Time Temp Pulse Resp B/P (MAP) Pulse Ox O2 Delivery O2 Flow Rate FiO2 02/22/18 13:37 18 98 Room Air 02/22/18 11:00 96.6 64 122/78 (93) 96.6 Labs: Labs: Laboratory Tests Test 02/21/18 16:15 02/21/18 16:40 Urine Collection Type Unknown Urine Color Yellow Urine Clarity Clear Urine pH 8.5 Urine Specific [place] 1.015 Urine Protein Negative mg/dL (NEG-TRACE) Urine Glucose (UA) Negative mg/dL (NEG) Urine Ketones (Stick) Negative mg/dL (NEG) Urine Blood Negative (NEG) Urine Nitrite Negative (NEG) Urine Bilirubin Negative (NEG) Urine Urobilinogen Dipstick 1.0 mg/dL (0.2 mg/dL) Urine Leukocyte Esterase Negative (NEG) Urine RBC 0 /HPF (0-2) Urine WBC 0 /HPF (0-4) Urine Squamous Epithelial Cells None /LPF Urine Bacteria 0 /HPF (0-FEW) White Blood Count 12.6 x10^3/uL (4.0-11.0) Red Blood Count 4.94 x10^6/uL (4.30-5.70) Hemoglobin 15.6 g/dL (13.0-17.5) Hematocrit 44.5 % (39.0-53.0) Mean Corpuscular Volume 90 fL (79-100) Mean Corpuscular Hemoglobin 32 pg (25-35) Mean Corpuscular Hemoglobin Concent 35 g/dL (31-37) Red Cell Distribution Width 12.5 % (11.5-14.5) Platelet Count 329 x10^3/uL (140-400) Neutrophils (%) (Auto) 94 % (31-73) Lymphocytes (%) (Auto) 5 % (24-48) Monocytes (%) (Auto) 1 % (0-9) Eosinophils (%) (Auto) 0 % (0-3) Basophils (%) (Auto) 0 % (0-3) Neutrophils # (Auto) 11.8 x10^3uL (1.8-7.7) Lymphocytes # (Auto) 0.6 x10^3/uL (1.0-4.8) Monocytes # (Auto) 0.1 x10^3/uL (0.0-1.1) Eosinophils # (Auto) 0.0 x10^3/uL (0.0-0.7) Basophils # (Auto) 0.0 x10^3/uL (0.0-0.2) Segmented Neutrophils % 93 % (35-66) Lymphocytes % 5 % (24-48) Monocytes % 1 % (0-10) Basophils % 1 % (0-3) Toxic Granulation Slight Platelet Estimate Adequate (ADEQUATE) Sodium Level 136 mmol/L (136-145) Potassium Level 3.7 mmol/L (3.5-5.1) Chloride Level 101 mmol/L (98-107) Carbon Dioxide Level 25 mmol/L (21-32) Anion Gap 10 (6-14) Blood Urea Nitrogen 9 mg/dL (8-26) Creatinine 0.8 mg/dL (0.7-1.3) Estimated GFR (Cockcroft-Gault) 104.1 Glucose Level 137 mg/dL (70-99) Calcium Level 9.7 mg/dL (8.5-10.1) Total Bilirubin 1.3 mg/dL (0.2-1.0) Direct Bilirubin 0.9 mg/dL (0.0-0.2) Aspartate Amino Transf (AST/SGOT) 324 U/L (15-37) Alanine Aminotransferase (ALT/SGPT) 222 U/L (16-63) Alkaline Phosphatase 143 U/L (46-116) C-Reactive Protein, Quantitative 2.9 mg/L (0-3.3) Total Protein 8.0 g/dL (6.4-8.2) Albumin 4.3 g/dL (3.4-5.0) Lipase 381 U/L (73-393) Imaging: Imaging: Ultrasound of the abdomen 02/21/2018 CLINICAL HISTORY: Abdominal pain. TECHNIQUE: A real-time ultrasound examination of the abdomen was performed. Multiple images were obtained. FINDINGS: Comparison is made to the patient's CT scan of the abdomen and pelvis dated 01/31/2018. The gallbladder is not visualized consistent with a cholecystectomy. The common bile duct measures 4 mm in diameter which is within normal limits. The liver is normal in size measuring 16.5 cm in length. Increased echogenicity of the liver parenchyma is seen consistent with mild fatty infiltration. The spleen and visualized portions of pancreas are within normal limits. Cysts are seen involving both kidneys. These measure 2.1 to 2.9 cm in size. The abdominal aorta tapers normally. Inferior vena cava is within normal limits. No free fluid is seen. IMPRESSION: 1. Post cholecystectomy. 2. Fatty infiltration of the liver. Electronically signed by: Jeff Phoenix MD (02/21/2018 8:17 PM) [facility] PE: GEN: NAD HEENT: Atraumatic, PERRLA LUNGS: CTAB HEART: RRR, no murmurs ABD: NABS, S/ND/NT, no masses EXTREMITY: No edema SKIN: No rashes, no jaundice NEURO/PSYCH: A & O 3 A/P: A/P: A) 1) Post ERCP pancreatitis 2) Fatty liver P) 1) ADAT 2) D/c EMMANUEL Chase MD Feb 22, 2018 14:37
[2018-02-22 15:00] VITALS: BP 137/84
[2018-02-22 19:00] VITALS: BP 143/75
[2018-02-22] MEDS: rOPINIRole 1 MG TABLET. PO SCH ×2 (19:51→22:52)
[2018-02-22] MEDS: NICOTINE 21MG PATCH. TD PRN (19:56)
[2018-02-22 23:00] VITALS: BP 131/79
[2018-02-22] MEDS ORDERED: LORazepam 1 MG TABLET PO PRN (23:15)
[2018-02-22] MEDS ORDERED: traZODone 100 MG TABLET. PO PRN (23:15)
[2018-02-23 03:00] VITALS: BP 117/72
[2018-02-23] MEDS: IV RINGERS,LACTATED 1000ML 1,000 ML IV SCH (03:54)
[2018-02-23 05:11] LABS: BASO % 0 % (0-3); EOS % 0 % (0-3); HEMATOCRIT 41.2 % (39.0-53.0); HEMOGLOBIN 14.1 g/dL (13.0-17.5); LYMPH # 2.7 x10^3/uL (1.0-4.8); LYMPH % 27 % (24-48); MEAN CORPUSCULAR HEMOGLOBIN 31 pg (25-35); MEAN CORPUSCULAR HGB CONC 34 g/dL (31-37); MEAN CORPUSCULAR VOLUME 92 fL (79-100); MONO # 0.8 x10^3/uL (0.0-1.1); MONO % 8 % (0-9); NEUT # 6.4 x10^3uL (1.8-7.7); NEUT % 65 % (31-73); PLATELET COUNT 280 x10^3/uL (140-400); RED BLOOD COUNT 4.49 x10^6/uL (4.30-5.70); RED CELL DISTRIBUTION WIDTH 12.7 % (11.5-14.5); WHITE BLOOD COUNT 9.9 x10^3/uL (4.0-11.0)
[2018-02-23] MEDS: HEPARIN PF for SUB-Q USE 5,000 UNIT/0.5 ML VIAL. SQ SCH (05:27)
[2018-02-23 05:35] LABS: ALBUMIN 3.8 g/dL (3.4-5.0); CALCIUM 9.5 mg/dL (8.5-10.1); CREATININE 0.7 mg/dL (0.7-1.3); DIRECT BILIRUBIN 0.2 mg/dL (0.0-0.2); GFR 121.4; POTASSIUM 4.4 mmol/L (3.5-5.1); TOTAL BILIRUBIN 0.6 mg/dL (0.2-1.0); TOTAL PROTEIN 6.9 g/dL (6.4-8.2)
[2018-02-23 07:00] VITALS: BP 118/72
--- NOTE | 2018-02-23 08:09 | PDOC ---
PROGRESS NOTES Chief Complaint Chief Complaint Acute pancreatitis History of Present Illness History of Present Illness Admitted for pancreatitis after ERCP, had been NPO for 3 days, asking for advanced diet today and would like a pain medication prescription so that he can increase his home dosing from neurologist. Advised to cont his medications as prescribed, avoid fatty foods, cont taking small liquid PO as tolerated. He is very anxious for discharge. His mother has many questions, all answered. She is concerned because she had another child of pancreatic cancer and feels the doctors missed it. I have reassured them there is no screening test for pancreatic cancer and his CT scan of abdomen in january was reviewed with no apparent pancreatic lesions. No CT was performed this visit as his symptoms were improving daily. D/c today A/P: Acute pancreatitis - likely 2/2 ERCP. admitted for IVF, nausea and pain control. Fentanyl and oral oxycodone have been managing his pain, however he continues to request IV dilaudid as well as food on return examination later in the day. Will repeat LFTs, lipase, CBC tomorrow morning. Can have clears on d/c if ok with GI s/p sheela - surgical site looks good. HTN - possibly 2/2 pain initially, will cont meds, switch to IV if nausea continues HLD - exacerbated pancreatitis, will monitor triglycerides Hyperglycemia - possibly 2/2 stress, will monitor and add sliding scale if > 140mg/dL Vitals Vitals Vital Signs Date Time Temp Pulse Resp B/P (MAP) Pulse Ox O2 Delivery O2 Flow Rate FiO2 02/23/18 03:00 98.0 55 18 117/72 (87) 98 Room Air 98.0 Physical Exam General: Alert, Oriented X3, Cooperative, mild distress Abdomen: Normal bowel sounds, Soft, Other (Surgical site clean, epigastric and RUQ pain on palpation) Extremities: No clubbing, No cyanosis, No edema, Normal pulses, No tenderness/ swelling Skin: No rashes, No breakdown, No significant lesion Labs LABS Laboratory Tests Test 02/23/18 03:35 White Blood Count 9.9 x10^3/uL (4.0-11.0) Red Blood Count 4.49 x10^6/uL (4.30-5.70) Hemoglobin 14.1 g/dL (13.0-17.5) Hematocrit 41.2 % (39.0-53.0) Mean Corpuscular Volume 92 fL (79-100) Mean Corpuscular Hemoglobin 31 pg (25-35) Mean Corpuscular Hemoglobin Concent 34 g/dL (31-37) Red Cell Distribution Width 12.7 % (11.5-14.5) Platelet Count 280 x10^3/uL (140-400) Neutrophils (%) (Auto) 65 % (31-73) Lymphocytes (%) (Auto) 27 % (24-48) Monocytes (%) (Auto) 8 % (0-9) Eosinophils (%) (Auto) 0 % (0-3) Basophils (%) (Auto) 0 % (0-3) Neutrophils # (Auto) 6.4 x10^3uL (1.8-7.7) Lymphocytes # (Auto) 2.7 x10^3/uL (1.0-4.8) Monocytes # (Auto) 0.8 x10^3/uL (0.0-1.1) Eosinophils # (Auto) 0.0 x10^3/uL (0.0-0.7) Basophils # (Auto) 0.0 x10^3/uL (0.0-0.2) Sodium Level 145 mmol/L (136-145) Potassium Level 4.4 mmol/L (3.5-5.1) Chloride Level 105 mmol/L (98-107) Carbon Dioxide Level 29 mmol/L (21-32) Anion Gap 11 (6-14) Blood Urea Nitrogen 7 mg/dL (8-26) Creatinine 0.7 mg/dL (0.7-1.3) Estimated GFR (Cockcroft-Gault) 121.4 Glucose Level 99 mg/dL (70-99) Calcium Level 9.5 mg/dL (8.5-10.1) Total Bilirubin 0.6 mg/dL (0.2-1.0) Direct Bilirubin 0.2 mg/dL (0.0-0.2) Aspartate Amino Transf (AST/SGOT) 47 U/L (15-37) Alanine Aminotransferase (ALT/SGPT) 109 U/L (16-63) Alkaline Phosphatase 99 U/L (46-116) Total Protein 6.9 g/dL (6.4-8.2) Albumin 3.8 g/dL (3.4-5.0) Lipase 144 U/L (73-393) Comment Review of Relevant I have reviewed the following items lotus (where applicable) has been applied. Labs Laboratory Tests Test 02/21/18 16:15 02/21/18 16:40 02/23/18 03:35 Urine Collection Type Unknown Urine Color Yellow Urine Clarity Clear Urine pH 8.5 Urine Specific [place] 1.015 Urine Protein Negative mg/dL (NEG-TRACE) Urine Glucose (UA) Negative mg/dL (NEG) Urine Ketones (Stick) Negative mg/dL (NEG) Urine Blood Negative (NEG) Urine Nitrite Negative (NEG) Urine Bilirubin Negative (NEG) Urine Urobilinogen Dipstick 1.0 mg/dL (0.2 mg/dL) Urine Leukocyte Esterase Negative (NEG) Urine RBC 0 /HPF (0-2) Urine WBC 0 /HPF (0-4) Urine Squamous Epithelial Cells None /LPF Urine Bacteria 0 /HPF (0-FEW) White Blood Count 12.6 x10^3/uL (4.0-11.0) 9.9 x10^3/uL (4.0-11.0) Red Blood Count 4.94 x10^6/uL (4.30-5.70) 4.49 x10^6/uL (4.30-5.70) Hemoglobin 15.6 g/dL (13.0-17.5) 14.1 g/dL (13.0-17.5) Hematocrit 44.5 % (39.0-53.0) 41.2 % (39.0-53.0) Mean Corpuscular Volume 90 fL (79-100) 92 fL (79-100) Mean Corpuscular Hemoglobin 32 pg (25-35) 31 pg (25-35) Mean Corpuscular Hemoglobin Concent 35 g/dL (31-37) 34 g/dL (31-37) Red Cell Distribution Width 12.5 % (11.5-14.5) 12.7 % (11.5-14.5) Platelet Count 329 x10^3/uL (140-400) 280 x10^3/uL (140-400) Neutrophils (%) (Auto) 94 % (31-73) 65 % (31-73) Lymphocytes (%) (Auto) 5 % (24-48) 27 % (24-48) Monocytes (%) (Auto) 1 % (0-9) 8 % (0-9) Eosinophils (%) (Auto) 0 % (0-3) 0 % (0-3) Basophils (%) (Auto) 0 % (0-3) 0 % (0-3) Neutrophils # (Auto) 11.8 x10^3uL (1.8-7.7) 6.4 x10^3uL (1.8-7.7) Lymphocytes # (Auto) 0.6 x10^3/uL (1.0-4.8) 2.7 x10^3/uL (1.0-4.8) Monocytes # (Auto) 0.1 x10^3/uL (0.0-1.1) 0.8 x10^3/uL (0.0-1.1) Eosinophils # (Auto) 0.0 x10^3/uL (0.0-0.7) 0.0 x10^3/uL (0.0-0.7) Basophils # (Auto) 0.0 x10^3/uL (0.0-0.2) 0.0 x10^3/uL (0.0-0.2) Segmented Neutrophils % 93 % (35-66) Lymphocytes % 5 % (24-48) Monocytes % 1 % (0-10) Basophils % 1 % (0-3) Toxic Granulation Slight Platelet Estimate Adequate (ADEQUATE) Sodium Level 136 mmol/L (136-145) 145 mmol/L (136-145) Potassium Level 3.7 mmol/L (3.5-5.1) 4.4 mmol/L (3.5-5.1) Chloride Level 101 mmol/L (98-107) 105 mmol/L (98-107) Carbon Dioxide Level 25 mmol/L (21-32) 29 mmol/L (21-32) Anion Gap 10 (6-14) 11 (6-14) Blood Urea Nitrogen 9 mg/dL (8-26) 7 mg/dL (8-26) Creatinine 0.8 mg/dL (0.7-1.3) 0.7 mg/dL (0.7-1.3) Estimated GFR (Cockcroft-Gault) 104.1 121.4 Glucose Level 137 mg/dL (70-99) 99 mg/dL (70-99) Calcium Level 9.7 mg/dL (8.5-10.1) 9.5 mg/dL (8.5-10.1) Total Bilirubin 1.3 mg/dL (0.2-1.0) 0.6 mg/dL (0.2-1.0) Direct Bilirubin 0.9 mg/dL (0.0-0.2) 0.2 mg/dL (0.0-0.2) Aspartate Amino Transf (AST/SGOT) 324 U/L (15-37) 47 U/L (15-37) Alanine Aminotransferase (ALT/SGPT) 222 U/L (16-63) 109 U/L (16-63) Alkaline Phosphatase 143 U/L (46-116) 99 U/L (46-116) C-Reactive Protein, Quantitative 2.9 mg/L (0-3.3) Total Protein 8.0 g/dL (6.4-8.2) 6.9 g/dL (6.4-8.2) Albumin 4.3 g/dL (3.4-5.0) 3.8 g/dL (3.4-5.0) Lipase 381 U/L (73-393) 144 U/L (73-393) Laboratory Tests Test 02/23/18 03:35 White Blood Count 9.9 x10^3/uL (4.0-11.0) Red Blood Count 4.49 x10^6/uL (4.30-5.70) Hemoglobin 14.1 g/dL (13.0-17.5) Hematocrit 41.2 % (39.0-53.0) Mean Corpuscular Volume 92 fL (79-100) Mean Corpuscular Hemoglobin 31 pg (25-35) Mean Corpuscular Hemoglobin Concent 34 g/dL (31-37) Red Cell Distribution Width 12.7 % (11.5-14.5) Platelet Count 280 x10^3/uL (140-400) Neutrophils (%) (Auto) 65 % (31-73) Lymphocytes (%) (Auto) 27 % (24-48) Monocytes (%) (Auto) 8 % (0-9) Eosinophils (%) (Auto) 0 % (0-3) Basophils (%) (Auto) 0 % (0-3) Neutrophils # (Auto) 6.4 x10^3uL (1.8-7.7) Lymphocytes # (Auto) 2.7 x10^3/uL (1.0-4.8) Monocytes # (Auto) 0.8 x10^3/uL (0.0-1.1) Eosinophils # (Auto) 0.0 x10^3/uL (0.0-0.7) Basophils # (Auto) 0.0 x10^3/uL (0.0-0.2) Sodium Level 145 mmol/L (136-145) Potassium Level 4.4 mmol/L (3.5-5.1) Chloride Level 105 mmol/L (98-107) Carbon Dioxide Level 29 mmol/L (21-32) Anion Gap 11 (6-14) Blood Urea Nitrogen 7 mg/dL (8-26) Creatinine 0.7 mg/dL (0.7-1.3) Estimated GFR (Cockcroft-Gault) 121.4 Glucose Level 99 mg/dL (70-99) Calcium Level 9.5 mg/dL (8.5-10.1) Total Bilirubin 0.6 mg/dL (0.2-1.0) Direct Bilirubin 0.2 mg/dL (0.0-0.2) Aspartate Amino Transf (AST/SGOT) 47 U/L (15-37) Alanine Aminotransferase (ALT/SGPT) 109 U/L (16-63) Alkaline Phosphatase 99 U/L (46-116) Total Protein 6.9 g/dL (6.4-8.2) Albumin 3.8 g/dL (3.4-5.0) Lipase 144 U/L (73-393) Medications Current Medications Sodium Chloride 1,000 ml @ 1,000 mls/hr 1X ONCE IV Last administered on 17:56; Start 02/21/18 at 17:00; Stop 02/21/18 at 18:00; Status DC Ondansetron HCl (Zofran) 4 mg 1X ONCE IV Last administered on 02/21/18at 17:52 ; Start 02/21/18 at 17:00; Stop 02/21/18 at 17:01; Status DC Fentanyl Citrate (Fentanyl 2ml Vial) 50 mcg 1X ONCE IV Last administered on at 17:51; Start 02/21/18 at 17:00; Stop 02/21/18 at 17:01; Status DC Fentanyl Citrate (Fentanyl 2ml Vial) 50 mcg 1X ONCE IV Last administered on at 18:45; Start 02/21/18 at 18:45; Stop 02/21/18 at 18:46; Status DC Ondansetron HCl (Zofran) 4 mg PRN Q8HRS PRN IV NAUSEA/VOMITING; Start 02/21/18 at 19:00; Stop 02/22/18 at 18:59; Status DC Fentanyl Citrate (Fentanyl 2ml Vial) 50 mcg PRN Q2HR PRN IV PAIN Last administered on 02/22/18 08:28; Start 02/21/18 at 19:00; Stop 02/22/18 at 18:59 ; Status DC Sodium Chloride 1,000 ml @ 100 mls/hr Q10H IV Last administered on 02/22/18at 07:43; Start 02/21/18 at 18:55; Stop 02/22/18 at 18:54; Status DC Famotidine (Pepcid Vial) 20 mg 1X ONCE IVP Last administered on 02/21/18at 19: 37; Start 02/21/18 at 19:45; Stop 02/21/18 at 19:46; Status DC Nicotine (Nicoderm Cq 21mg) 1 patch PRN DAILY PRN TD SMOKING CESSATION Last administered on 02/22/18at 19:56; Start 02/21/18 at 20:45 Ketorolac Tromethamine (Toradol 30mg Vial) 30 mg PRN Q6HRS PRN IV PAIN Last administered on 02/21/18at 20:59; Start 02/21/18 at 20:45; Stop 02/26/18 at 20: 44 Amlodipine Besylate (Norvasc) 10 mg DAILY PO Last administered on 02/22/18at 08: 27; Start 02/22/18 at 09:00 Docusate Sodium (Colace) 100 mg PRN BID PRN PO CONSTIPATION; Start 02/21/18 at 20:45 Pantoprazole Sodium (Protonix) 40 mg DAILYAC PO Last administered on 02/22/18at 08:25; Start 02/22/18 at 07:30 Ropinirole HCl (Requip) 1 mg QHS PO Last administered on 02/22/18 22:52; Start 02/21/18 at 22:30 Fish Oil (Fish Oil) 1,000 mg BID PO Last administered on 02/22/18 19:42; Start 02/22/18 at 09:00 Oxycodone/ Acetaminophen (Percocet 10/325) 1 tab PRN TID PRN PO MODERATE PAIN Last administered on 02/21/18 22:40; Start 02/21/18 at 22:30 Oxycodone/ Acetaminophen (Percocet 10/325) 2 tab PRN TID PRN PO SEVERE PAIN Last administered on 02/22/18 19:42; Start 02/21/18 at 22:30 Pharmacy Consult (C.diff Med Screen By Rx) 1 each 1X ONCE [facility] ; Start 02/22/18 at 09:00; Stop 02/22/18 at 09:01; Status Cancel Polyethylene Glycol (miraLAX PACKET) 17 gm PRN DAILY PRN PO CONSTIPATION; Start 02/21/18 at 23:45 Multi-Ingredient Mouthwash/Gargle (Gi Cocktail) 20 ml 1X ONCE PO Last administered on 02/22/18at 00:36; Start 02/22/18 at 00:15; Stop 02/22/18 at 00:16 ; Status DC Throat Lozenges (Cepacol Sore Throat Lozenge) 1 lulu PRN Q2HRS PRN PO SORE THROAT Last administered on 02/22/18 22:07; Start 02/21/18 at 23:45 Ringer's Solution 1,000 ml @ 100 mls/hr Q10H IV Last administered on at 03:54; Start 02/22/18 at 08:00 Ondansetron HCl (Zofran) 4 mg PRN Q6HRS PRN IV NAUSEA/VOMITING; Start 02/22/18 at 08:00 Heparin Sodium (Porcine) (Heparin Sq) 5,000 unit Q8HRS SQ Last administered on 02/22/18 08:37; Start 02/22/18 at 08:00 Oxycodone HCl (Roxicodone) 5 mg PRN Q6HRS PRN PO MODERATE TO SEVERE PAIN Last administered on 02/22/18 22:08; Start 02/22/18 at 08:00 Hydromorphone HCl (Dilaudid) 0.2 mg PRN Q4HRS PRN IVP SEVERE PAIN; Start at 08:00; Stop 02/22/18 at 17:19; Status DC Lorazepam (Ativan) 1 mg PRN Q6HRS PRN PO ANXIETY / AGITATION Last administered on 02/22/18at 23:27; Start 02/22/18 at 23:15 Trazodone HCl (Desyrel) 100 mg PRN QHS PRN PO INSOMNIA; Start 02/22/18 at 23:15 Active Scripts Active Percocet 10-325 Mg Tablet (Oxycodone/Acetaminophen) 1 Each Tablet 1-2 Tab PO TID PRN Colace (Docusate Sodium) 100 Mg Capsule 100 Mg PO BID PRN Reported Requip (Ropinirole Hcl) 1 Mg Tablet 1 Tab PO QHS Gemfibrozil 600 Mg Tablet 600 Mg PO DAILY Fish Oil 1,000 Mg Softgel (Carlos-3 Fatty Acids/Fish Oil) 1 Each Capsule 1 Each PO BID Cialis (Tadalafil) 5 Mg Tablet 5 Mg PO PRN DAILY PRN Amlodipine Besylate 10 Mg Tablet 10 Mg PO DAILY Nexium Capsule (Esomeprazole Magnesium) 40 Mg Capsule.dr 40 Mg PO DAILYAC Diazepam 10 Mg Tablet 20 Mg PO TID Vitals/I & O Vital Sign - Last 24 Hours 02/22/18 02/22/18 02/22/18 02/22/18 08:27 08:28 09:00 10:33 Pulse 69 Resp 18 18 18 B/P (MAP) 128/68 Pulse Ox 98 98 98 O2 Delivery Room Air Room Air Room Air 02/22/18 02/22/18 02/22/18 02/22/18 11:00 11:33 13:37 14:39 Temp 96.6 96.6 Pulse 64 Resp 16 18 18 18 B/P (MAP) 122/78 (93) Pulse Ox 98 98 98 O2 Delivery Room Air Room Air 02/22/18 02/22/18 02/22/18 02/22/18 15:00 19:00 19:42 20:00 Temp 97.7 97.9 97.7 97.9 Pulse 67 75 Resp 16 18 B/P (MAP) 137/84 (101) 143/75 (97) Pulse Ox 99 97 O2 Delivery Room Air Room Air Room Air Room Air 02/22/18 02/22/18 02/22/18 02/22/18 20:42 22:08 23:00 23:08 Temp 97.5 97.5 Pulse 60 Resp 18 B/P (MAP) 131/79 (96) Pulse Ox 96 O2 Delivery Room Air Room Air Room Air Room Air 02/23/18 03:00 Temp 98.0 98.0 Pulse 55 Resp 18 B/P (MAP) 117/72 (87) Pulse Ox 98 O2 Delivery Room Air Intake and Output 02/22/18 02/22/18 02/23/18 15:00 23:00 07:00 Intake Total 0 ml 800 ml Balance 0 ml 800 ml CONNOR VELASCO MD Feb 23, 2018 08:09
[2018-02-23] MEDS: PANTOPRAZOLE 40 MG TABLET.DR. PO SCH (08:44)
[2018-02-23] MEDS: OMEGA-3 FATTY ACIDS/FISH OIL 1,000 MG CAPSULE. PO SCH (08:44)
[2018-02-23] MEDS: oxyCODONE/APAP 10/325 1 TAB TABLET PO PRN (08:45)
[2018-02-23] MEDS: amLODIPine BESYLATE 10 MG TABLET PO SCH (08:46)
[2018-02-23 10:29] LABS: ALBUMIN 3.8 g/dL (3.4-5.0); ALBUMIN/GLOBULIN RATIO 1.1 (1.0-1.7); CALCIUM 9.1 mg/dL (8.5-10.1); CREATININE 0.7 mg/dL (0.7-1.3); GFR 121.4; POTASSIUM 3.9 mmol/L (3.5-5.1); TOTAL BILIRUBIN 0.5 mg/dL (0.2-1.0); TOTAL PROTEIN 7.4 g/dL (6.4-8.2)
[2018-02-23 10:51] VITALS: BP 119/61
--- NOTE | 2018-02-23 14:43 | PDOC ---
Subjective: Subjective: feels better. tolerating PO Objective: Vital Signs: Vital Signs Date Time Temp Pulse Resp B/P (MAP) Pulse Ox O2 Delivery O2 Flow Rate FiO2 02/23/18 10:51 98.2 66 20 119/61 (80) 97 Room Air 98.2 PE: GEN: NAD HEENT: Atraumatic, PERRLA LUNGS: CTAB HEART: RRR, no murmurs ABD: NABS, S/ND/NT, no masses EXTREMITY: No edema SKIN: No rashes, no jaundice NEURO/PSYCH: A & O 3 A/P: A/P: A/P: A) 1) Post ERCP pancreatitis. lipase and LFTs improved 2) Fatty liver P) 1) ADAT 2) D/c today EMMANUEL ENNIS MD Feb 23, 2018 14:43
== END 2018-02-23 15:16 | disposition home or self-care (01) | DRG 393 ==
LOC: ER 15:39 → 5 SOUTH 18:44
PROVIDERS: ADMIT Internal Medicine; ATTEND Internal Medicine
DX: K91.89 Other postprocedural complications and disorders of digestive system (principal); K85.90 Acute pancreatitis without necrosis or infection, unspecified; E78.00 Pure hypercholesterolemia, unspecified; E78.5 Hyperlipidemia, unspecified; I10 Essential (primary) hypertension; K57.90 Diverticulosis of intestine, part unspecified, without perforation or abscess without bleeding; Y84.8 Other medical procedures as the cause of abnormal reaction of the patient, or of later complication, without mention of misadventure at the time of the procedure; F41.9 Anxiety disorder, unspecified; M19.90 Unspecified osteoarthritis, unspecified site; R73.9 Hyperglycemia, unspecified; K21.9 Gastro-esophageal reflux disease without esophagitis; K76.0 Fatty (change of) liver, not elsewhere classified; Z86.73 Personal history of transient ischemic attack (TIA), and cerebral infarction without residual deficits; Z90.49 Acquired absence of other specified parts of digestive tract; Z88.5 Allergy status to narcotic agent; Z88.0 Allergy status to penicillin; Z79.899 Other long term (current) drug therapy; Z80.9 Family history of malignant neoplasm, unspecified
CPT/HCPCS: 36415; 74328; 76700; 80048; 80053; 80076; 81001; 83690; 85007; 85025; 86140; 96361; 96374; 96375; 96376; J1885; J2405; J3010; J7030; J7120; S0028; 99285-25

== ENCOUNTER → 2018-02-21 | Day surgery (SDC) | payer MEDICARE, MEDICAID ==
[~2018-02-21] MED LIST changes: +DEXAMETHASONE SOD PHOS 20 MG/5 ML VIAL. ONE; +FAMOTIDINE 20 MG/2 ML VIAL ONE; +IOHEXOL 300 MG/ML 100ML VIAL. IV ONE; +IOHEXOL 300 MG/ML 100ML VIAL. ONE; +IV RINGERS,LACTATED 1000ML 1,000 ML IV SCH; +LIDOCAINE 1% PF 2 ML VIAL. ID PRN; +MORPHINE SULFATE 2 MG/ML VIAL. IV PRN; +ONDANSETRON PF 4 MG/2 ML VIAL. IV PRN; +ONDANSETRON PF 4 MG/2 ML VIAL. ONE; +PROCHLORPERAZINE 10 MG/2 ML VIAL. IV PRN; +PROPOFOL 20 ML IV ONE; +SUCCINYLCHOLINE 200 MG/10 ML VIAL. ONE; +fentaNYL PF VIAL 100 MCG/2 ML VIAL IV PRN
[2018-02-21] MEDS: fentaNYL PF VIAL 100 MCG/2 ML VIAL IV PRN ×3 (11:32→12:07)
--- NOTE | 2018-02-21 11:45 | RAD ---
Intraoperative fluoroscopic support 02/21/2018 INDICATION: ERCP COMPARISON STUDY: None FINDINGS: Intraoperative fluoroscopic support provided during ERCP. Fluoroscopy time: 1 minute 12 seconds. Exposures: 4. Images demonstrate cannulation and contrast opacification of the biliary tree. No gross filling defects are seen on limited provided imaging. Please refer to operative notes for further detail. IMPRESSION: Intraoperative fluoroscopic support was provided as described Electronically signed by: Joey Santos MD (02/21/2018 11:41 AM) [id number]
[2018-02-21 13:23] VITALS: BP 137/78
--- NOTE | 2018-02-21 20:21 | RAD ---
Ultrasound of the abdomen 02/21/2018 CLINICAL HISTORY: Abdominal pain. TECHNIQUE: A real-time ultrasound examination of the abdomen was performed. Multiple images were obtained. FINDINGS: Comparison is made to the patient's CT scan of the abdomen and pelvis dated 01/31/2018. The gallbladder is not visualized consistent with a cholecystectomy. The common bile duct measures 4 mm in diameter which is within normal limits. The liver is normal in size measuring 16.5 cm in length. Increased echogenicity of the liver parenchyma is seen consistent with mild fatty infiltration. The spleen and visualized portions of pancreas are within normal limits. Cysts are seen involving both kidneys. These measure 2.1 to 2.9 cm in size. The abdominal aorta tapers normally. Inferior vena cava is within normal limits. No free fluid is seen. IMPRESSION: 1. Post cholecystectomy. 2. Fatty infiltration of the liver. Electronically signed by: Jeff Phoenix MD (02/21/2018 8:17 PM) [facility]
== END | disposition home or self-care (01) ==
LOC: ENDOS 09:34
PROVIDERS: ATTEND Internal Medicine Gastroenterology
DX: R93.2 Abnormal findings on diagnostic imaging of liver and biliary tract (principal); Z90.49 Acquired absence of other specified parts of digestive tract; I10 Essential (primary) hypertension; E78.5 Hyperlipidemia, unspecified; K21.9 Gastro-esophageal reflux disease without esophagitis; F41.9 Anxiety disorder, unspecified; M19.90 Unspecified osteoarthritis, unspecified site; F17.210 Nicotine dependence, cigarettes, uncomplicated; Z88.0 Allergy status to penicillin; Z88.5 Allergy status to narcotic agent; Z79.899 Other long term (current) drug therapy
CPT/HCPCS: 43262; C1726; C1757; J0330; J1100; J2405; J2704; J3010; Q9967; S0028; 74328; 76700

== ENCOUNTER 2019-01-14 18:51 | Emergency (ER) | payer MEDICARE, MEDICAID ==
[~2019-01-14] VITALS: Ht 182.9 cm; Wt 93.0 kg
[~2019-01-14 18:51] MED LIST changes: -AMLO10TA6 PO; +AMLO10TA8 PO; -GEMF600T4 PO; +GEMF600T8 PO; -OXYC-328 PO; +OXYC1TAB22 PO; -OXYC30TA PO; +OXYC30TA3 PO
[2019-01-14 20:14] LABS: BASO # 0.1 x10^3/uL (0.0-0.2); BASO % 1 % (0-3); EOS # 0.1 x10^3/uL (0.0-0.7); EOS % 1 % (0-3); HEMATOCRIT 43.7 % (39.0-53.0); HEMOGLOBIN 15.3 g/dL (13.0-17.5); LYMPH # 2.8 x10^3/uL (1.0-4.8); LYMPH % 30 % (24-48); MEAN CORPUSCULAR HEMOGLOBIN 32 pg (25-35); MEAN CORPUSCULAR HGB CONC 35 g/dL (31-37); MEAN CORPUSCULAR VOLUME 92 fL (79-100); MONO # 0.8 x10^3/uL (0.0-1.1); MONO % 9 % (0-9); NEUT # 5.5 x10^3/uL (1.8-7.7); NEUT % 60 % (31-73); PLATELET COUNT 289 x10^3/uL (140-400); RED BLOOD COUNT 4.76 x10^6/uL (4.30-5.70); RED CELL DISTRIBUTION WIDTH 12.8 % (11.5-14.5); WHITE BLOOD COUNT 9.3 x10^3/uL (4.0-11.0)
[2019-01-14] MEDS ORDERED: IV NORMAL SALINE 1000ML BAG 1,000 ML IV ONE (20:15)
[2019-01-14] MEDS ORDERED: fentaNYL PF VIAL 100 MCG/2 ML VIAL IV ONE (20:15)
[2019-01-14] MEDS ORDERED: ONDANSETRON PF 4 MG/2 ML VIAL. IV ONE (20:15)
--- NOTE | 2019-01-14 20:22 | PHYS DOC ---
Past Medical History Past Medical History: Other Additional Past Medical Histor: cerebral palsy Past Surgical History: Cholecystectomy Alcohol Use: None Drug Use: None Adult General Chief Complaint Chief Complaint: ABDOMINAL PAIN HPI HPI Patient is a 48 year old male who presents with states had a Gertrudis 1 year ago and ever since then as a matter what he eats but he will have mid abdominal pain that is stabbing and dull and rates an 8 out of 10. Patient states this pains come and go. Patient states she's also had diarrhea since the Gertrudis. Patient states that he saw his neurologist at and has another appointment with him in January but was diagnosed with lumbar sacral radiculopathy. Patient states to put him on Percocet and ibuprofen but is not working. Patient states he tried to call today but they didn't call him back. Patient states that Dilaudid through an IV helped pain last time. Patient is told that can give you Dilaudid or the pill form but I will order a anti-inflammatory back to the Percocet. Patient states that he is in agreement with that plan for his back. Review of Systems Review of Systems Constitutional: Denies fever or chills [] Respiratory: Denies cough or shortness of breath [] Cardiovascular: Denies Chest pain GI: mid abdominal pain, nausea, denies vomiting, bloody stools. + diarrhea [] : Denies dysuria or hematuria [] Musculoskeletal: Chronic Lumbar sacral back pain or joint pain [] Integument: Denies rash or skin lesions [] Neurologic: Denies headache, focal weakness or sensory changes [] All other systems were reviewed and found to be within normal limits, except as documented in this note. Current Medications Current Medications Current Medications Medications (Trade) Dose Ordered Sig/Anna Start Time Stop Time Status Last Admin Dose Admin Famotidine (Pepcid Vial) 20 mg 1X ONCE 01/14/19 20:45 01/14/19 20:46 DC 01/14/19 20:39 20 MG Fentanyl Citrate (Fentanyl 2ml Vial) 50 mcg 1X ONCE 01/14/19 20:15 01/14/19 20:16 DC 01/14/19 20:22 50 MCG Info (CONTRAST GIVEN -- Rx MONITORING) 1 each PRN DAILY PRN 01/14/19 20:30 01/16/19 20:29 Iohexol (Omnipaque 300 Mg/ml) 75 ml 1X ONCE 01/14/19 20:30 01/14/19 20:31 DC 01/14/19 20:44 75 ML Ondansetron HCl (Zofran) 4 mg 1X ONCE 01/14/19 20:15 01/14/19 20:16 DC 01/14/19 20:22 4 MG Sodium Chloride 1,000 ml @ 1,000 mls/hr 1X ONCE 01/14/19 20:15 01/14/19 21:14 DC 01/14/19 20:22 1,000 MLS/HR Allergies Allergies Allergies Coded Allergies Type Severity Reaction Last Updated Verified Penicillins Allergy Intermediate Hives 02/21/18 Yes morphine Allergy Intermediate Itching 02/21/18 Yes Physical Exam Physical Exam Constitutional: Well developed, well nourished, no acute distress, non-toxic appearance. [] Cardiovascular:Heart rate regular rhythm, no murmur [] Lungs & Thorax: Bilateral breath sounds clear to auscultation [] Abdomen: Bowel sounds normal, soft, Mid abdomen tenderness, no masses, no pulsatile masses. [] Skin: Warm, dry, no erythema, no rash. [] Back: Lumbar sacral tenderness, no CVA tenderness. [] Extremities: No tenderness, no cyanosis, no clubbing, ROM intact, no edema. [] Neurologic: Alert and oriented X 3, normal motor function, normal sensory function, no focal deficits noted. [] Psychologic: Affect normal, judgement normal, mood normal. [] Current Patient Data Vital Signs Vital Signs Date Time Temp Pulse Resp B/P (MAP) Pulse Ox O2 Delivery O2 Flow Rate FiO2 01/14/19 20:51 65 14 165/94 (117) 97 Room Air 01/14/19 19:35 98.2 98.2 Lab Values Laboratory Tests Test 01/14/19 20:05 01/14/19 20:20 White Blood Count 9.3 x10^3/uL (4.0-11.0) Red Blood Count 4.76 x10^6/uL (4.30-5.70) Hemoglobin 15.3 g/dL (13.0-17.5) Hematocrit 43.7 % (39.0-53.0) Mean Corpuscular Volume 92 fL (79-100) Mean Corpuscular Hemoglobin 32 pg (25-35) Mean Corpuscular Hemoglobin Concent 35 g/dL (31-37) Red Cell Distribution Width 12.8 % (11.5-14.5) Platelet Count 289 x10^3/uL (140-400) Neutrophils (%) (Auto) 60 % (31-73) Lymphocytes (%) (Auto) 30 % (24-48) Monocytes (%) (Auto) 9 % (0-9) Eosinophils (%) (Auto) 1 % (0-3) Basophils (%) (Auto) 1 % (0-3) Neutrophils # (Auto) 5.5 x10^3/uL (1.8-7.7) Lymphocytes # (Auto) 2.8 x10^3/uL (1.0-4.8) Monocytes # (Auto) 0.8 x10^3/uL (0.0-1.1) Eosinophils # (Auto) 0.1 x10^3/uL (0.0-0.7) Basophils # (Auto) 0.1 x10^3/uL (0.0-0.2) Sodium Level 138 mmol/L (136-145) Potassium Level 4.3 mmol/L (3.5-5.1) Chloride Level 98 mmol/L (98-107) Carbon Dioxide Level 28 mmol/L (21-32) Anion Gap 12 (6-14) Blood Urea Nitrogen 8 mg/dL (8-26) Creatinine 1.0 mg/dL (0.7-1.3) Estimated GFR (Cockcroft-Gault) 80.1 BUN/Creatinine Ratio 8 (6-20) Glucose Level 91 mg/dL (70-99) Calcium Level 9.2 mg/dL (8.5-10.1) Total Bilirubin 0.5 mg/dL (0.2-1.0) Aspartate Amino Transferase (AST) 14 U/L (15-37) L Alanine Aminotransferase (ALT) 18 U/L (16-63) Alkaline Phosphatase 80 U/L (46-116) Total Protein 7.9 g/dL (6.4-8.2) Albumin 4.3 g/dL (3.4-5.0) Albumin/Globulin Ratio 1.2 (1.0-1.7) Lipase 52 U/L (73-393) L Urine Collection Type Unknown Urine Color Yellow Urine Clarity Clear Urine pH 5.5 Urine Specific [place] >=1.030 Urine Protein Negative mg/dL (NEG-TRACE) Urine Glucose (UA) Negative mg/dL (NEG) Urine Ketones (Stick) Negative mg/dL (NEG) Urine Blood Negative (NEG) Urine Nitrite Negative (NEG) Urine Bilirubin Small (NEG) Urine Urobilinogen Dipstick 0.2 mg/dL (0.2 mg/dL) Urine Leukocyte Esterase Negative (NEG) Urine RBC Occ /HPF (0-2) Urine WBC Occ /HPF (0-4) Urine Bacteria 0 /HPF (0-FEW) Urine Hyaline Casts Few /HPF Urine Mucus Marked /LPF Urine Opiates Screen Pos (NEG) Urine Methadone Screen Neg (NEG) Urine Barbiturates Neg (NEG) Urine Phencyclidine Screen Neg (NEG) Urine Amphetamine/Methamphetamine Neg (NEG) Urine Benzodiazepines Screen Pos (NEG) Urine Cocaine Screen Neg (NEG) Urine Cannabinoids Screen Neg (NEG) Urine Ethyl Alcohol Neg (NEG) Laboratory Tests 01/14/19 20:05 Laboratory Tests 01/14/19 20:05 EKG EKG [] Radiology/Procedures Radiology/Procedures [] Impressions: [facility] [id number] [facility] [place] [address] IMAGING REPORT Signed PATIENT: LORETTA ROWELL ACCOUNT: [id number] : 1970 LOCATION: ER AGE: 48 SEX: M EXAM STATUS: REG ER ORD. PHYSICIAN: ISACC SHARMA APRN REASON: abdominal pain PROCEDURE: CT ABD PELV W/ IV CONTRST ONLY CT ABD PELV W/ IV CONTRST ONLY History: Abdominal pain Comparison: 01/31/2018 Technique: After administration of intravenous contrast, helical CT of the abdomen and pelvis was performed from the lung bases through the ischial tuberosities. Coronal and sagittal reconstructions were obtained. 75 mL of Omnipaque 350 were used. One or more of the following dose reduction techniques were utilized: Automated exposure control (AEC), Adjustment of mA and/or kV according to patient size, Use of iterative reconstruction technique such as ASiR, CT scan done according to ALARA and image gently/image wisely Abdomen Findings: The visualized lung bases are clear. The liver, pancreas, spleen, and bilateral adrenal glands are normal. Cholecystectomy. Symmetric renal enhancement. Stable small renal cysts. There is no hydronephrosis. The visualized loops of small bowel are normal. The visualized loops of large bowel are normal. There is no evidence of bowel obstruction. Appendix is normal. There is no free fluid. There is no mesenteric or retroperitoneal adenopathy. The abdominal aorta is normal in caliber. Pelvis Findings: Urinary bladder is partially distended. No pelvic free fluid. There is no pelvic or inguinal adenopathy. There is no acute bony abnormality. IMPRESSION: No acute abdominal or pelvic process. Electronically signed by: Sowmya Harkins MD (01/14/2019 9:10 PM) [id number] DICTATED and SIGNED BY: SOWMYA HARKINS MD DATE: 01/14/192109 Course & Med Decision Making Course & Med Decision Making Patient is a 48 year old male who presents with states had a Gertrudis 1 year ago and ever since then as a matter what he eats but he will have mid abdominal pain that is stabbing and dull and rates an 8 out of 10. Patient states this pains come and go. Patient states she's also had diarrhea since the Gertrudis. Patient states that he saw his neurologist at and has another appointment with him in January but was diagnosed with lumbar sacral radiculopathy. Patient states to put him on Percocet and ibuprofen but is not working. Patient states he tried to call today but they didn't call him back. Patient states that Dilaudid through an IV helped pain last time. Patient is told that can give you Dilaudid or the pill form but I will order a anti-inflammatory back to the Percocet. Patient states that he is in agreement with that plan for his back. Alert and oriented. Skin pink warm and dry. Ambulatory with a steady gait. Mucous membranes moist. PERRLA. Abdomen is soft but tender to mid abdomen. Patient denies blood in his stools, vomiting, dizziness, syncope, chest pain, shortness of air, fevers, recent antibiotics, visual changes. Lungs are clear to auscultation in all lobes. No extremity swelling. CT abdomen pelvis shows no acute findings. Urinalysis not infected. Blood work is unremarkable. Patient is discharged home and referred to GI. Patient will be given a prescription for Mobic 15mg Daily. Patient to follow up with his neurologist as scheduled. I have consulted with Dr Rincon on the care plan of this patient. Sriram Disclaimer Dragon Disclaimer This electronic medical record was generated, in whole or in part, using a voice recognition dictation system. Departure Departure Impression: Primary Impression: Abdominal pain Additional Impression: Chronic back pain Disposition: HOME, SELF-CARE Condition: STABLE Referrals: MELVA NAGY (PCP) CHRISSIE PACHECO MD Patient Instructions: Abdominal Pain (Nonspecific), Chronic Diarrhea Additional Instructions: I have referred to GI to follow up with for your chronic diarrhea and abdominal pain. Take medication as prescribed. Follow up with your neurologist concerning your low back pain. Scripts Meloxicam (MOBIC) 15 Mg Tablet 1 TAB PO DAILY, #30 TAB 1 Refill Prov: ISACC SHARMA APRN 01/14/19 Problem Qualifiers Primary Impression: Abdominal pain Abdominal location: periumbilical Qualified Codes: R10.33 - Periumbilical pain Additional Impression: Chronic back pain Back pain location: low back pain Back pain laterality: bilateral Sciatica presence: without sciatica Qualified Codes: M54.5 - Low back pain; G89.29 - Other chronic pain ISACC SHARMA MANAGER [employer]ING Jan 14, 2019 20:22
[2019-01-14 20:23] LABS: CALCIUM 9.2 mg/dL (8.5-10.1); GFR 80.1; POTASSIUM 4.3 mmol/L (3.5-5.1)
[2019-01-14 20:28] LABS: ALBUMIN 4.3 g/dL (3.4-5.0); ALBUMIN/GLOBULIN RATIO 1.2 (1.0-1.7); TOTAL BILIRUBIN 0.5 mg/dL (0.2-1.0); TOTAL PROTEIN 7.9 g/dL (6.4-8.2)
[2019-01-14] MEDS ORDERED: CONTRAST GIVEN. MC PRN (20:30)
[2019-01-14] MEDS ORDERED: IOHEXOL 300 MG/ML 100ML VIAL. IV ONE (20:30)
[2019-01-14 20:38] LABS: BILIRUBIN,URINE SMALL (NEG); CLARITY,URINE CLEAR; COLOR,URINE YELLOW; NITRITE,URINE NEGATIVE (NEG); PH,URINE 5.5; PROTEIN,URINE NEGATIVE (NEG-TRACE); UROBILINOGEN,URINE 0.2 mg/dL (0.2 mg/dL)
[2019-01-14 20:45] LABS: BACTERIA,URINE 0 /HPF (0-FEW); BARBITURATES NEG (NEG); BENZODIAZEPINES POS (NEG); CANNABINOIDS NEG (NEG); COCAINE NEG (NEG); HYALINE CASTS, URINE FEW /HPF; METHADONE NEG (NEG); OPIATES POS (NEG); PHENCYCLIDINE NEG (NEG); RBC,URINE OCC /HPF (0-2); WBC,URINE OCC /HPF (0-4)
[2019-01-14] MEDS ORDERED: FAMOTIDINE 20 MG/2 ML VIAL IVP ONE (20:45)
[2019-01-14 20:47] LABS: AMPHETAMINE/METHAMPHETAMINE NEG (NEG)
--- NOTE | 2019-01-14 21:13 | RAD ---
CT ABD PELV W/ IV CONTRST ONLY History: Abdominal pain Comparison: 01/31/2018 Technique: After administration of intravenous contrast, helical CT of the abdomen and pelvis was performed from the lung bases through the ischial tuberosities. Coronal and sagittal reconstructions were obtained. 75 mL of Omnipaque 350 were used. One or more of the following dose reduction techniques were utilized: Automated exposure control (AEC), Adjustment of mA and/or kV according to patient size, Use of iterative reconstruction technique such as ASiR, CT scan done according to ALARA and image gently/image wisely Abdomen Findings: The visualized lung bases are clear. The liver, pancreas, spleen, and bilateral adrenal glands are normal. Cholecystectomy. Symmetric renal enhancement. Stable small renal cysts. There is no hydronephrosis. The visualized loops of small bowel are normal. The visualized loops of large bowel are normal. There is no evidence of bowel obstruction. Appendix is normal. There is no free fluid. There is no mesenteric or retroperitoneal adenopathy. The abdominal aorta is normal in caliber. Pelvis Findings: Urinary bladder is partially distended. No pelvic free fluid. There is no pelvic or inguinal adenopathy. There is no acute bony abnormality. IMPRESSION: No acute abdominal or pelvic process. Electronically signed by: Cedric Harkins MD (01/14/2019 9:10 PM) [facility]
[2019-01-14] MEDS ORDERED: MELO15TA6 PO (21:25)
[2019-01-14 21:36] VITALS: BP 157/89
== END 2019-01-14 22:16 | disposition home or self-care (01) ==
LOC: ER 18:51
DX: R10.33 Periumbilical pain (principal); G89.29 Other chronic pain; M54.5 Low back pain; R19.7 Diarrhea, unspecified; R11.0 Nausea; Z90.49 Acquired absence of other specified parts of digestive tract; Z88.0 Allergy status to penicillin; Z88.5 Allergy status to narcotic agent
CPT/HCPCS: 36415; 74177; 80053; 80307; 81001; 83690; 85025; 96361; 96374; 96375; 99285; J2405; J3010; J3490; J7030; Q9967

== ENCOUNTER 2020-09-18 16:41 | Emergency (ER) | payer OTHER, MEDICAID ==
[~2020-09-18] VITALS: Ht 182.9 cm; Wt 97.7 kg
[~2020-09-18 16:41] MED LIST changes: +AMLO-187 PO; -AMLO10TA8 PO; +GEMF600T20 PO; -GEMF600T8 PO; +MELO15TA6 PO
[2020-09-18] MEDS ORDERED: fentaNYL PF VIAL 100 MCG/2 ML VIAL IVP ONE ×2 (19:00→20:45)
[2020-09-18] MEDS ORDERED: methylPREDNISolone SOD SUCC PF 125 MG/2 ML VIAL. IV ONE (19:00)
[2020-09-18] MEDS ORDERED: ORPHENADRINE CITRATE 60 MG/2 ML VIAL. IM ONE (19:15)
--- NOTE | 2020-09-18 19:52 | PHYS DOC ---
Past Medical History Past Medical History: No Pertinent History, Other Additional Past Medical Histor: cerebral palsy (ISACC SHARMA BOY'S ADVISER) Past Surgical History: Cholecystectomy (ISACC SHARMA BOY'S ADVISER) Smoking Status: Current Every Day Smoker Alcohol Use: None Drug Use: None (ISACC SHARMA BOY'S ADVISER) General Adult EDM: Chief Complaint: LOWER BACK PAIN OR INJURY HPI: HPI: Patient is a 50 year old male who presents with patient states for the last 2 days he has had left lower back pain that with sharp shooting pain going down the left back of his leg. He states that he has been taking the meloxicam coming areas. Oxycodone which he only took yesterday. His neurologist is at . Patient has a history of cerebral palsy but is able to walk on his own, cholecystectomy and smoker. Patient told me he did lose his bladder. Patient denies any numbness or tingling, chest pain, shortness of air, fall, injury, abdominal pain, loss of bowel, diarrhea, headache, dizziness. He states he has been having to use his cane to help him walk around the house with the pain has been too great. Patient rating his pain a 10 out of 10. (ISACC SHARMA BOY'S ADVISER) Review of Systems: Review of Systems: Constitutional: Denies fever or chills. [] Eyes: Denies change in visual acuity. [] HENT: Denies nasal congestion or sore throat. [] Respiratory: Denies cough or shortness of breath. [] Cardiovascular: Denies chest pain or edema. [] GI: Denies abdominal pain, nausea, vomiting, bloody stools or diarrhea. [] : Denies dysuria.+Urinated on himself[] Musculoskeletal: + Low back pain or denies joint pain. + Sharp shooting left leg [] Integument: Denies rash. [] Neurologic: Denies headache, focal weakness or sensory changes. [] Endocrine: Denies polyuria or polydipsia. [] Lymphatic: Denies swollen glands. [] Psychiatric: Denies depression or anxiety. [] (ISACC SHARMA BOY'S ADVISER) Heart Score: C/O Chest Pain: No Risk Factors: Risk Factors: DM, Current or recent (<one month) smoker, HTN, HLP, family history of CAD, obesity. Risk Scores: Score 0 - 3: 2.5% MACE over next 6 weeks - Discharge Home Score 4 - 6: 20.3% MACE over next 6 weeks - Admit for Clinical Observation Score 7 - 10: 72.7% MACE over next 6 weeks - Early Invasive Strategies (ISACC SHARMA BOY'S ADVISER) Current Medications: Current Medications Medications (Trade) Dose Ordered Sig/[facility] Start Time Stop Time Status Last Admin Dose Admin Fentanyl Citrate (Fentanyl 2ml Vial) 50 mcg 1X ONCE 09/18/20 19:00 09/18/20 19:01 DC 09/18/20 19:09 50 MCG Methylprednisolone Sodium Succinate (SOLU-Medrol 125MG VIAL) 125 mg 1X ONCE 09/18/20 19:00 09/18/20 19:01 DC 09/18/20 19:09 125 MG Orphenadrine Citrate (Norflex) 60 mg 1X ONCE 09/18/20 19:15 09/18/20 19:16 DC 09/18/20 19:16 60 MG (ISACC SHARMA BOY'S ADVISER) Allergies: Allergies: Allergies Coded Allergies Type Severity Reaction Last Updated Verified Penicillins Allergy Intermediate Hives 02/21/18 Yes morphine Allergy Intermediate Itching 02/21/18 Yes (ISACC SAHRMA BOY'S ADVISER) Physical Exam: PE: Constitutional: Well developed, well nourished, no acute distress, non-toxic appearance. [] HENT: Normocephalic, atraumatic, bilateral external ears normal, oropharynx moist, no oral exudates, nose normal. [] Eyes: PERRLA, EOMI, conjunctiva normal, no discharge. [] Neck: Normal range of motion, no tenderness, supple, no stridor. [] Cardiovascular:Heart rate regular rhythm, no murmur [] Lungs & Thorax: Bilateral breath sounds clear to auscultation [] Abdomen: Bowel sounds normal, soft, no tenderness, no masses, no pulsatile masses. [] Skin: Warm, dry, no erythema, no rash. [] Back: Left lower back tenderness, no CVA tenderness. [] Extremities: No tenderness, no cyanosis, no clubbing, ROM intact, no edema. [] Neurologic: Alert and oriented X 3, normal motor function, normal sensory function, no focal deficits noted. [] Psychologic: Affect normal, judgement normal, mood normal. [] (ISACC SHARMA APRN) Current Patient Data: Vital Signs: Vital Signs Date Time Temp Pulse Resp B/P (MAP) Pulse Ox O2 Delivery O2 Flow Rate FiO2 09/18/20 19:09 24 98 Room Air 09/18/20 18:00 98.2 75 157/89 (111) 98.2 (ISACC SHARMA APRN) EKG: EKG: [] (ISACC SHARMA APRN) Radiology/Procedures: Radiology/Procedures: [] Impression: [facility] [address] [place] [address] IMAGING REPORT Signed PATIENT: LORETTA ROWELL ACCOUNT: [id number] : 1970 LOCATION: ER AGE: 50 SEX: M EXAM STATUS: REG ER ORD. PHYSICIAN: ISACC SHARMA APRN REASON: worsening back pain PROCEDURE: CT LUMBAR SPINE WO CONTRAST CT LUMBAR SPINE WO dated 09/18/2020 7:23 PM Indication:Reason: worsening back pain / Spl. Instructions: / History: Comparison: No comparison is available. Technique: Helical noncontrast images were performed. Sagittal and coronal reconstructions were obtained. One or more of the following individualized dose reduction techniques were utilized for this examination: 1. Automated exposure control 2. Adjustment of the mA and/or kV according to patient size 3. Use of iterative reconstruction technique Findings: Alignment is normal. There is no loss of vertebral body height or other evidence for fracture. Intervertebral discs are not narrowed. No destructive process is seen. Evaluation of the soft tissue components of the canal is limited without intrathecal contrast. There is no obvious large disc protrusion or spinal stenosis. IMPRESSION: No acute abnormality. No obvious large disc protrusion, although evaluation is limited by lack of intrathecal contrast. If symptoms persist, MRI may be useful. Electronically signed by: Nicola Azul Jr., MD (09/18/2020 8:03 PM) [facility] DICTATED and SIGNED BY: NICOLA AZUL Jr, MD DATE: 09/18/[id number] 0 (ISACC SHARMA APRN) Course & Med Decision Making: Course & Med Decision Making Pertinent Labs and Imaging studies reviewed. (See chart for details) See HPI. Alert and oriented x4. Ambulatory with a steady gait. Speaks in full clear sentences. No saddle paresthesia. He is moving his extremities. He is not however wanting to move his left leg every time he moves the left leg he gets intense pain. He states that he last took any of his medications yester day. Patient has gotten a couple doses of fentanyl. He has gotten 125 of Solu- Medrol. Patient has also gotten muscle relaxer. No acute findings. I spoke to Grazyna from neurosurgery and Dr. Black took a look at the CT scan and he stated that if the patient's pain is uncontrolled then the patient can the hospital and we can schedule an MRI for the morning. Have spoken to the patient and he states that he is unable to get around at home very well and get to the bathroom. He states that his mother lives with him but she is 84 years old and cannot help him. I told the patient that he should stay in the hospital given he is having a hard time getting around in the house. We spoke about safety and possible falls and further injury. We also spoke about the importance of cauda equina. He states his understands. Patient states that he would like to stay and have his pain controlled. He agrees to an MRI in the morning. 2129: Right after I left the room patient has decided that he just wants a shot of Dilaudid and to go home. He knows the risk of leaving especially since he is having a hard time getting around at home. He states that he understands and that he will come back if needed. Otherwise he is going to call his neurologist in the morning. Patient states he has had no other loss of bladder except for that one time. [] (BAFUS,ISACC M BOY'S ADVISER) Course & Med Decision Making I oversaw on the above date of service of this patient and discussed the care with the SOFTWARE RELEASE MANAGER. Given reported findings, I advised SOFTWARE RELEASE MANAGER to contact neurosurgery services for discussion and further recommendations on case management. I recommended we admit patient, patient with full capacity declined. I agree with the findings, plan of care, and disposition as documented. Electronically signed, Arden De La Cruz DO (ARDEN DE LA CRUZ DO) Sriram Disclaimer: Sriram Disclaimer: This electronic medical record was generated, in whole or in part, using a voice recognition dictation system. (ISACC SHARMA APRN) Departure Departure Impression: Primary Impression: Intractable back pain Disposition: HOME / SELF CARE / HOMELESS Admitting Physician: ROSSY (ISACC SHARMA APRN) Condition: STABLE Referrals: MELVA NAGY (PCP) Patient Instructions: Back Pain, Adult Additional Instructions: Follow-up with your neurologist by calling tomorrow. Take all your medications as prescribed. Try using heating pad. If you lose your bowel or bladder you need to return the emergency room. Scripts Methylprednisolone (MEDROL) 4 Mg Tab.ds.pk 1 PKG PO UD, #1 PKG Prov: ISACC SHARMA APRN 09/18/20 ISACC SHARMA APRN September 18, 2020 19:52 ARDEN DE LA CRUZ DO September 21, 2020 18:48
--- NOTE | 2020-09-18 20:05 | RAD ---
CT LUMBAR SPINE WO dated 09/18/2020 7:23 PM Indication:Reason: worsening back pain / Spl. Instructions: / History: Comparison: No comparison is available. Technique: Helical noncontrast images were performed. Sagittal and coronal reconstructions were obtai nona. One or more of the following individualized dose reduction techniques were utilized for this examinat ion: 1. Automated exposure control 2. Adjustment of the mA and/or kV according to patient size 3. Use of iterative reconstruction technique Findings: Alignment is normal. There is no loss of vertebral body height or other evidence for fracture. Interv ertebral discs are not narrowed. No destructive process is seen. Evaluation of the soft tissue compon ents of the canal is limited without intrathecal contrast. There is no obvious large disc protrusion or spinal stenosis. IMPRESSION: No acute abnormality. No obvious large disc protrusion, although evaluation is limited by lack of int rathecal contrast. If symptoms persist, MRI may be useful. Electronically signed by: Ishaan Azul Jr., MD (09/18/2020 8:03 PM) [facility]
[2020-09-18] MEDS ORDERED: HYDROmorphone 2 MG/ML VIAL IVP ONE (21:30)
[2020-09-18] MEDS ORDERED: METH4TAB2 PO (21:33)
[2020-09-18 21:42] VITALS: BP 152/86
== END 2020-09-18 22:12 | disposition home or self-care (01) ==
LOC: ER 16:41
DX: M54.5 Low back pain (principal); M79.605 Pain in left leg; F17.200 Nicotine dependence, unspecified, uncomplicated; Z90.49 Acquired absence of other specified parts of digestive tract
CPT/HCPCS: 72131; 96372; 96374; 96375; 96376; 99285; J1170; J2360; J2930; J3010; 96361

== ENCOUNTER 2021-06-15 15:53 | Emergency (ER) | payer OTHER, MEDICAID ==
[~2021-06-15] VITALS: Ht 182.9 cm; Wt 97.7 kg
[~2021-06-15 15:53] MED LIST changes: +METH4TAB2 PO
[2021-06-15 16:00] VITALS: BP 156/86
[2021-06-15] MEDS ORDERED: LIDOCAINE 2%/EPI 1:100,000 20 ML VIAL. INJ ONE (16:30)
[2021-06-15] MEDS ORDERED: NEOMY/BACITR/POLYMYXIN OINT PACKET. TP ONE (16:30)
[2021-06-15] MEDS ORDERED: DIPHTH,PERTUSS(ACELL),TET TOX 0.5 ML DISP.SYRIN. VAX IM ONE (16:45)
--- NOTE | 2021-06-15 17:02 | PHYS DOC ---
Past Medical History Past Medical History: Other Additional Past Medical Histor: cerebral palsy Past Surgical History: No Surgical History, Cholecystectomy Smoking Status: Current Every Day Smoker Additional Information: 1 PPD Alcohol Use: None Drug Use: None General Adult EDM: Chief Complaint: LOWEREXTREMITY INJURY HPI: HPI: Patient is a 51-year-old male presented to the emergency department 2 hours after accidentally stabbing himself in the right middle thigh with a new knife. Patient describes the pain as sharp and constant has not tried anything to alleviate his pain movement makes his pain worse denies any associated symptoms at this time. Review of Systems: Review of Systems: Constitutional: Denies fever or chills Eyes: Denies redness or eye pain HENT: Denies nasal congestion or sore throat Respiratory: Denies cough or shortness of breath Cardiovascular: Denies chest pain or palpitations GI: Denies abdominal pain, nausea, or vomiting : Denies dysuria or hematuria Musculoskeletal: Denies back pain or joint pain Integument: Denies rash or skin lesions Neurologic: Denies headache, focal weakness or sensory changes Complete systems were reviewed and found to be within normal limits, except as documented in this note. Heart Score: C/O Chest Pain: N/A Current Medications: Current Medications Medications (Trade) Dose Ordered Sig/Anna Start Time Stop Time Status Last Admin Dose Admin Diphtheria/ Tetanus/Acell Pertussis (Boostrix) 0.5 ml ONCE ONCE 06/15/21 16:45 06/15/21 16:46 Lidocaine/ Epinephrine (LIDOCAINE 2%-EPI 1:100,000 multi-dose) 20 ml 1X ONCE 06/15/21 16:30 06/15/21 16:31 DC 06/15/21 16:28 20 ML Neomycin/ Polymyxin/ Bacitracin (Triple Antibiotic Ointment) 1 pkt 1X ONCE 06/15/21 16:30 06/15/21 16:31 DC 06/15/21 16:28 1 PKT Allergies: Allergies: Allergies Coded Allergies Type Severity Reaction Last Updated Verified Penicillins Allergy Intermediate Hives 02/21/18 Yes morphine Allergy Intermediate Itching 02/21/18 Yes Physical Exam: PE: Constitutional: Well developed, well nourished, no acute distress, non-toxic a ppearance HENT: Normocephalic, atraumatic Eyes: conjunctiva normal, no discharge Neck: Normal range of motion, no tenderness, supple Lungs & Thorax: No respiratory distress, equal chest rise and fall Abdomen: Soft, no tenderness Skin: Warm, dry, no erythema, no rash Back: No tenderness, no CVA tenderness Extremities:1.5 inch laceration anterior right thigh, neurovascular function intact, denies any other isseus Neurologic: Alert and oriented X 3, normal motor function, normal sensory function, no focal deficits noted Psychologic: Affect normal, judgment normal Current Patient Data: Vital Signs: Vital Signs Date Time Temp Pulse Resp B/P (MAP) Pulse Ox O2 Delivery O2 Flow Rate FiO2 06/15/21 16:00 98.5 87 24 156/86 (109) 94 Room Air 98.5 EKG: EKG: [] Radiology/Procedures: Radiology/Procedures: [] Course & Med Decision Making: Course & Med Decision Making Patient presented to the emergency department a 1.5 inch laceration on his right anterior thigh. Laceration repair was done with six 3-0 nylon sutures and was anesthetized with 7 cc of lidocaine with epinephrine. Wound was appropriately wrapped and patient was discharge instructions on how to properly care for his wound. Patient stable for discharge with outpatient follow-up with PCP. Discussed findings and plan with patient, who acknowledges understanding and agreement. Sriram Disclaimer: Sriram Disclaimer: This electronic medical record was generated, in whole or in part, using a voice recognition dictation system. Laceration/Wound Repair Laceration/Wound Repair : Wound's Depth, Shape: into muscle Wound Explored: clean Irrigated w/ Saline (ccs): 200 Betadine Prep?: Yes Anesthesia: Lidocaine w/ Epi Wound Debrided: minimal Wound Repaired With: sutures Suture Size/Type: 3:0, nylon Number of Sutures: 6 Sterile Dressing Applied?: Yes Splint Applied?: No Progress Patient verbally consented to wound closure via suture Timeout conducted. Wound was irrigated and cleaned with Betadine. Wound was anesthetized with 7 cc of lidocaine with epinephrine. Patient's 1.5 inch laceration was closed with 6 simple interrupted 3-0 nylon sutures. Antibiotic ointment was applied and wound was covered with sterile dressing as well as Augustus bandage. Departure Departure Impression: Primary Impression: Thigh laceration Qualified Codes: S71.111A - Laceration without foreign body, right thigh, initial encounter Disposition: HOME / SELF CARE / HOMELESS Condition: STABLE Referrals: MELVA NAGY (PCP) Patient Instructions: Elastic Bandage and RICE, Laceration Care, Adult, [id number] Additional Instructions: Do not soak your wound. You may shower. Clean wound daily with soap and water. Change dressing 2 times daily. Use over the counter antibiotic ointment with each dressing change. Use Augustus bandage for the next several days to decrease swelling and to prevent any further bleeding. Sutures need to be removed in 10-14 days. Present to your family doctor or local urgent care for removal. You may also present to the ED but it will be an additional visit/charge. After suture removal you may use Vitamin E ointment to soften the wound and prevent scarring. Use [id number] ibuprofen and or Tylenol for pain or discomfort. LORETTA DUNHAM DO Jun 15, 2021 17:02
== END 2021-06-15 17:28 | disposition home or self-care (01) ==
LOC: ER 15:53
DX: S71.111A Laceration without foreign body, right thigh, initial encounter (principal); Z88.0 Allergy status to penicillin; Z88.5 Allergy status to narcotic agent; W26.0XXA Contact with knife, initial encounter; Y93.89 Activity, other specified; Y92.89 Other specified places as the place of occurrence of the external cause; Y99.8 Other external cause status
CPT/HCPCS: 12002; 90471; 90715; 99283; J3490